=== PATIENT | female | born 1945 | race Two or more races ===

== ENCOUNTER 2023-02-12 10:10 | Emergency (ER) | payer MEDICARE ==
[~2023-02-12] VITALS: Ht 157.5 cm; Wt 54.6 kg
[2023-02-12 10:16] VITALS: BP 148/67
[2023-02-12] MEDS ORDERED: KETOROLAC 30MG VIAL (30MG/ML) IVP ONE (11:00)
[2023-02-12] MEDS ORDERED: DIAZEPAM 5 MG/ML 2 ML SYG IVP ONE (11:00)
[2023-02-12] MEDS ORDERED: FAMOTIDINE 20MG VIAL IV ONE (11:00)
[2023-02-12] MEDS ORDERED: METOCLOPRAMIDE 10 MG/2 ML VIAL IVP ONE (11:00)
[2023-02-12] MEDS ORDERED: METOCLOPRAMIDE 10 MG TABLET PO ONE (11:30)
[2023-02-12] MEDS ORDERED: KETOROLAC 60 MG VIAL (30MG/ML) IM ONE (11:30)
[2023-02-12] MEDS ORDERED: DIAZEPAM 5 MG/ML 2 ML SYG IM ONE (11:30)
[2023-02-12] MEDS ORDERED: FAMOTIDINE 20MG TAB PO ONE (11:30)
[2023-02-12] MEDS ORDERED: CYCL10TA16 PO (12:02)
[2023-02-12] MEDS ORDERED: NAPR-1192 PO (12:02)
== END 2023-02-12 12:10 | disposition home or self-care (01) ==
LOC: EDH 10:10
DX: M54.12 Radiculopathy, cervical region (principal); M25.511 Pain in right shoulder; I10 Essential (primary) hypertension; E11.9 Type 2 diabetes mellitus without complications
CPT/HCPCS: 99284; 72040; 73030; 96372 ×2; J3360; J1885

== ENCOUNTER → 2024-08-02 | Outpatient (CLI) | payer MEDICARE ==
[~2024-08-02] MED LIST: ASPI-1197 PO; ATOR20TA65 PO; DOCU-116 PO; DONE10TA43 PO; FERR-72 PO; MEMA10TA21 PO; METF-444 PO; PARO-37 PO
--- NOTE | 2024-08-02 10:42 | HMCIMG ---
MAMMO SCREENING BILATERAL HISTORY: Screening mammogram. COMPARISON: None TECHNIQUE: Bilateral screening mammogram with CAD was performed with craniocaudal and mediolateral oblique projections. FINDINGS: The breasts are extremely dense which lowers the sensitivity of mammogram. There is no evidence of a dominant mass, or suspicious microcalcification. There is no evidence of nipple retraction or skin thickening. IMPRESSION: 1. Stable mammogram. Patient was entered into a reminder system with a target due date for their next mammogram. BI-RADS: CATEGORY 2: BENIGN FINDINGS Recommend monthly self breast exam as well as annual clinical examination. A negative x-ray should not delay biopsy if a dominant or clinically suspicious mass is present, since 8-10% of cancers are not identified by mammography. Dense breasts particularly, may obscure an underlying neoplasm. Some of these may be detected clinically and therefore, clinical examination is an essential part of breast evaluation.
== END | disposition home or self-care (01) ==
LOC: RAH 09:44
PROVIDERS: ATTEND Family Medicine
DX: Z12.31 Encounter for screening mammogram for malignant neoplasm of breast (principal); R92.343 Mammographic extreme density, bilateral breasts
CPT/HCPCS: 77067

== ENCOUNTER 2024-11-03 01:35 | Observation (INO) | payer MEDICARE ==
[2024-11-03] VITALS (20 sets, daily range): BP systolic 107–147; BP diastolic 33–72; PULSE 62–88; RESP 14–19; TEMP 97.6–98.3; O2SAT 100
[~2024-11-03] VITALS: Ht 160 cm; Wt 58.3 kg
--- NOTE | 2024-11-03 01:41 | ERN ---
ED Note History of Present Illness Stated Complaint: LOWER GI BLEED Chief Complaint: Gi Problem Time Seen by MD: 01:38 Dictation: Ms Vaughan is a 79-year-old female with history of Alzheimer's dementia, hyperlipidemia, recurrent UTI, anemia, type 2 diabetes, and myasthenia gravis/post thymectomy who was transported via EMS to the emergency department this morning for evaluation of gastrointestinal bleeding. According to patient's she was undergoing a bowel prep for colonoscopy later today when she had syncopal episode /who passed out on toilet. He reports she has been having bright red stools since Thursday at 1500. She feels weak, fatigued and is experiencing abdominal cramping as well as leg cramps.. It was two rece ived colonoscopy because she had been experiencing bloody stools occurring approximately every other day. There was no reported fever, chills, chest pain, palpitations, edema, nausea, vomiting, hematemesis, melena, headache, or dizziness. She does take aspirin but no anticoagulants. 98.1, heart rate of 59, 16 respiratory rate, blood pressure 148 over 70 with a pulse oximetry of 98% on room air 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 NP 07/31/24 Ferrous Sulfate (Ferrous Sulfate) 325 Mg (65 Mg Iron) Tablet, 1 TAB PO BID for 30 Days, #60 TAB 0 Refills Prov:ALAN WHITLEY NP 07/31/24 Reported Medications Atorvastatin Calcium (Atorvastatin Calcium) 20 Mg Tablet, 1 TAB PO HS for 30 Days, #30 TAB 0 Refills 07/29/24 Aspirin (Aspirin) 81 Mg Tab.chew, 1 TAB PO DAILY for 30 Days, #30 TAB 0 Refills 07/29/24 Paroxetine HCl (Paroxetine HCl) 20 Mg Tablet, 20 MG PO HS, TAB 07/29/24 Metformin HCl (Metformin HCl) 500 Mg Tablet, 1 TAB PO DAILY for 30 Days, #60 TAB 0 Refills 07/29/24 Donepezil HCl (Donepezil HCl) 10 Mg Tablet, 10 MG PO HS, TAB 07/29/24 Memantine HCl (Memantine HCl) 10 Mg Tablet, 10 MG PO BID, TAB 07/29/24 Past Medical History Past Medical History: Dementia, Diabetes-Type II, High Cholesterol, UTI Surgical History: Other, BTL Surgical History Other: THYMECTOMY Social History: Negative, Lives with family History: Not Applicable RN Note Reviewed/Agreed w/PFSH: Yes Review of System Dictation REVIEW OF SYSTEMS: CONSTITUTIONAL: Patient denies fevers, chills, sweats and weight changes. Reported fatigue and general weakness. EYES: Patient denies any visual symptoms. EARS, NOSE, AND THROAT: No difficulties with hearing. No symptoms of rhinitis or sore throat. CARDIOVASCULAR: Patient denies chest pains, palpitations, orthopnea and paroxysmal nocturnal dyspnea. RESPIRATORY: No dyspnea on exertion, no wheezing or cough. GI: No nausea, vomiting, diarrhea, constipation, or melena. Reported abdominal cramping as well as bright red rectal bleeding throughout bowel prep for colonoscopy. She had been experiencing rectal bleeding (reason for colonoscopy) occurring approximately every other day : No urinary hesitancy or dribbling. No nocturia or urinary frequency. No abnormal urethral discharge. Reported urinary incontinence. MUSCULOSKELETAL: No myalgias or arthralgias. NEUROLOGIC: No chronic headaches, no seizures. Patient denies numbness, tingling or weakness. Reported altered mental status; worsening. Patient has a history of Alzheimer's dementia. PSYCHIATRIC: Patient denies problems with mood disturbance. No problems with anxiety. ENDOCRINE: No excessive urination or excessive thirst. DERMATOLOGIC: Patient denies any rashes or skin changes. Initial Vital Sign VS Vital Signs Date Time Temp Pulse Resp B/P (MAP) Pulse Ox O2 Delivery O2 Flow Rate FiO2 11/03/24 01:41 98.1 59 16 148/70 98 Room Air 0 11/03/24 04:06 21 Physical Exam Dictation Vital signs: Reviewed. Afebrile Constitutional: No acute distress. Fatigue/week Head/Face: Normocephalic, atraumatic. Eyes: Periorbital areas with no swelling, redness, or edema. Lids and lashes are normal. Conjunctival injection is absent. Sclera anicteric. Pupils equal, round, reactive to light. ENT: Pinnas intact and no signs of trauma or erythema. Ear canals clear and no discharge. TMs no erythema. No nasal discharge or bleeding noted. Oropharynx with no exudate, redness, swelling, masses, exudates, or evidence of obstruction. Uvula midline. Mucous membranes dry Neck: Trachea midline, no masses palpated, and no cervical lymphadenopathy. No swelling. Supple, full range of motion. Chest/Axilla: No tenderness, no crepitus, no paradoxical movement, no retractions. Cardiovascular: Regular rate, regular rhythm, no murmur, no gallops. Symmetric pulses. No peripheral edema. Normotensive. shelter monitor reflecting sinus rhythm Respiratory: Respirations even and unlabored. Lung sounds clear; no wheezes, rales or rhonchi. Room air SpO2 99% Gastrointestinal: Inspection is normal. No distention is appreciated. Bowel sounds are normal. No mass or organomegaly . Noted tenderness/cramping No rebound. No rigidity. No voluntary or involuntary guarding. No Resendiz's sign. Neurological: Normal speech, gross motor function intact, gross sensory function intact. No focal weakness/Paresthesia. Musculoskeletal/Extremities: All extremities have full range of motion, no pain or tenderness on palpation. Symmetric pulses. Integumentary: Intact. Skin is normal color, warm and dry. Cap refill less than 3 seconds. Results (Laboratory/Radiology) Laboratory/Radiology Laboratory Tests Test 11/03/24 01:58 White Blood Count 8.8 K/uL (4.8-10.8) Red Blood Count 3.48 MIL/uL (4.00-5.50) L Hemoglobin 11.0 g/dL (12.0-16.0) L Hematocrit 34.1 % (36-48) L Mean Corpuscular Volume 98.0 fL (79-99) Mean Corpuscular Hemoglobin 31.6 pg (27.0-33.0) Mean Corpuscular Hemoglobin Concent 32.3 g/dL (32.0-36.0) Red Cell Distribution Width 13.9 % (11.0-15.5) Platelet Count 183 K/uL (130-400) Mean Platelet Volume 12.0 fL (7.5-10.5) H Immature Granulocyte % (Auto) 0.1 % (0-1) Neutrophils (%) (Auto) 60.9 % (40.0-77.0) Lymphocytes (%) (Auto) 28.6 % (21.0-51.0) Monocytes (%) (Auto) 8.9 % (3.0-13.0) Eosinophils (%) (Auto) 1.3 % (0.0-8.0) Basophils (%) (Auto) 0.2 % (0.0-5.0) Neutrophils # (Auto) 5.3 K/uL (1.8-7.7) Lymphocytes # (Auto) 2.5 K/uL (1.0-4.8) Monocytes # (Auto) 0.8 K/uL (0.1-1.0) Eosinophils # (Auto) 0.11 K/uL (0.00-0.70) Basophils # (Auto) 0.02 K/uL (0.00-0.20) Absolute Immature Granulocyte (auto 0.01 K/uL (0-1) Nucleated Red Blood Cells 0.0 % (0.0-0.19) Prothrombin Time 11.0 SEC (9.6-11.6) Prothromb Time International Ratio 1.04 (0.85-1.15) Activated Partial Thromboplast Time 23.1 SEC (26.3-35.5) L Sodium Level 132 mmol/L (136-145) L Potassium Level 3.2 mmol/L (3.5-5.1) L Chloride Level 95 mmol/L (101-111) L Carbon Dioxide Level 30 mmol/L (21-32) Blood Urea Nitrogen 10 mg/dL (7-18) Creatinine 0.9 mg/dL (0.5-1.0) Glomerular Filtration Rate Calc 66 mL/min (>90) Random Glucose 117 mg/dL (70-105) H Total Calcium 9.2 mg/dL (8.5-10.1) Troponin I High Sensitivity 5 ng/L (4-50) Labs Reviewed?: Yes ED Course ED Course Orders Procedure Category Date Status Time Cbc With Differential LAB 11/03/24 Complete 01:38 Basic Metabolic Panel LAB 11/03/24 Complete 01:38 Type And Screen BBK 11/03/24 Complete 01:38 Pt And Ptt LAB 11/03/24 Complete 01:38 12 Lead Ekg Tracing- EKG 11/03/24 Logged Technical 01:47 Chest 1vw RAD 11/03/24 Taken 01:47 Troponin I High LAB 11/03/24 Complete Sensitivity 02:59 Potassium Chloride PHA 11/03/24 In Process 20meq/100ml ([place] 03:30 Morphine 2mg Syg PHA 11/03/24 Complete (Morphine 2mg Syg) 03:30 Edm Admit Bridge Order ADM 11/03/24 Transmitted 04:09 Current Medications Medications (Trade) Dose Ordered Sig/Naima Route PRN Reason Start Time Stop Time Status Last Admin Dose Admin Morphine Sulfate (morPHINE 2MG SYG) 2 mg ONCE ONCE IVP 11/03/24 03:30 11/03/24 03:32 DC 11/03/24 03:12 Potassium Chloride 100 ml @ 50 mls/hr ONCE ONCE IV 11/03/24 03:30 11/03/24 05:29 11/03/24 03:12 Vital Signs Date Time Temp Pulse Resp B/P (MAP) Pulse Ox O2 Delivery O2 Flow Rate FiO2 11/03/24 04:06 98.2 64 17 134/49 100 Room Air* 0 21 11/03/24 01:41 98.1 59 16 148/70 98 Room Air 0 4:11 a.m. patient was accepted by Jensen Toledo, mid-level provider for hospitalist group for admission and further management Medical Decision Making MDM MDM: Differential diagnosis: Presyncope-vasovagal, dehydration, GI bleed related, medications, primary cardiac Rationale: Tests considered and ordered secondary to shared decision making include: labs, ECG and radiology Previous outside records reviewed: Old ER visits. Risk of complication and/or morbidity or mortality of patient management: None Medications-Per medication reconciliation Need for hospitalization: Patient does meet criteria for hospitalization. Need for emergency major/minor surgery: No There are no social concerns with this patient. Prescription drug management Prescriptions will include symptomatic care Patient's prior external medical records from other ER visits were reviewed by me as indicated. Prior testing and results from previous visits were reviewed. Prior tests were taken into account with medical decision making and resource utilization, independent historian/historians were used to obtain complete medical history. I independently interpreted the test that were performed, results were reviewed by me and considered findings on radiology if ordered. Medical management and examination interpretation discussions were had by me with other qualified healthcare professionals as indicated for the patient's care. Problem List Problem List: (1) Syncope (2) Hypotension (3) Leg pain (4) Dehydration DX & DISP Disposition: Inpatient Decision to Admit Time: 03:00 Departure Impression: Primary Impression: Syncope Additional Impressions: Leg pain, Hypotension, Dehydration, GI bleed Condition: Stable Additional Instructions: Patient was informed of all the diagnostic labs and procedures conducted in the emergency room today and demonstrated understanding of the results. I personally reviewed and interpreted all the diagnostic exams performed in the ER today. The patient will be admitted to the hospital for further treatment and evaluation. Disposition-admit to facility Condition-stable/guarded Course-uncertain at this time Pain status-decreased Assessment-exam unchanged Admission Certification- I certify that the patients status is appropriate and is based on my best clinical judgment and the patient's condition as documented in the medical records Referrals: ALLI GUADALUPE MD (PCP) ROMAN MOLINA NP Nov 03, 2024 01:41 THIAGO RODRIGUEZ MD Nov 03, 2024 04:13
[2024-11-03 02:17] LABS: BASOPHILS # (AUTO) 0.02 K/uL (0.00-0.20); BASOPHILS % (AUTO) 0.2 % (0.0-5.0); EOSINOPHILS # (AUTO) 0.11 K/uL (0.00-0.70); EOSINOPHILS % (AUTO) 1.3 % (0.0-8.0); HEMATOCRIT 34.1 % (36-48); IMMATURE GRANULOCYTE ABSOLUTE 0.01 K/uL (0-1); LYMPHOCYTES # (AUTO) 2.5 K/uL (1.0-4.8); LYMPHOCYTES % (AUTO) 28.6 % (21.0-51.0); MEAN CORPUSCULAR HEMOGLOBIN 31.6 pg (27.0-33.0); MEAN CORPUSCULAR HGB CONC 32.3 g/dL (32.0-36.0); MONOCYTES # (AUTO) 0.8 K/uL (0.1-1.0); MONOCYTES % (AUTO) 8.9 % (3.0-13.0); NEUTROPHILS # (AUTO) 5.3 K/uL (1.8-7.7); NEUTROPHILS % (AUTO) 60.9 % (40.0-77.0); PLATELET COUNT (AUTO) 183 K/uL (130-400); RED BLOOD CELL COUNT(AUTO) 3.48 MIL/uL (4.00-5.50); RED CELL DISTRIBUTION WIDTH 13.9 % (11.0-15.5); WHITE BLOOD COUNT (AUTO) 8.8 K/uL (4.8-10.8)
[2024-11-03 02:23] LABS: CREATININE 0.9 mg/dL (0.5-1.0); POTASSIUM 3.2 mmol/L (3.5-5.1)
[2024-11-03 02:24] LABS: INR 1.04 (0.85-1.15)
[2024-11-03 02:26] LABS: PARTIAL THROMBOPLASTIN TIME 23.1 SEC (26.3-35.5)
[2024-11-03] MEDS: PoTASSium chloRIDE 20MEQ/100ML 100 ML IV ONE (03:12)
[2024-11-03] MEDS: morPHINE 2 MG SYG IVP ONE (03:12)
--- NOTE | 2024-11-03 05:45 | NUR ---
PATIENT DID NOT BRING HOME MEDICATIONS
[2024-11-03] MEDS ORDERED: acetaMINOPHEN 325 MG TAB PO PRN (06:30)
[2024-11-03] MEDS ORDERED: ondanSETRON 4MG INJ IV PRN (06:30)
[2024-11-03] MEDS ORDERED: morPHINE 4 MG SYG IVP PRN (06:30)
[2024-11-03] MEDS ORDERED: hydrALAZine 20MG/ML VIAL IV PRN (06:30)
--- NOTE | 2024-11-03 06:30 | EKG ---
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
--- NOTE | 2024-11-03 06:32 | HP ---
History of Present Illness Reason for Visit: dizziness History of Present Illness Ms. Vaughan is a 79-year-old female that was seen and examined today on 11/03/2024. Patient is a moderate historian and personal health. Patient's is at bedside. Patient came to the emergency department with a chief complaint of dizziness. Onset was tonight. Location is to head. Duration is on and off. Patient reports one episode. Episode was preceded by multiple bowel movements after taking colonoscopy preparation for a colonoscopy that was scheduled outpatient today at 6:00 a.m for an outpatient diagnosis of hematochezia.. Symptoms are alleviated with rest. Patient reported associated abdominal cramping also aggravated by colonoscopy preparation medications. Today in the emergency department potassium was 3.2. Emergency room physician recommended that patient be admitted with a diagnosis of dizziness because she had a similar episode in July of 2024. Past Medical History PAST MEDICAL HISTORY: Alzheimer's dementia, hypertension, hyperlipidemia, type 2 diabetes mellitus, remote history of myasthenia gravis status post thymectomy PAST SURGICAL HISTORY: History of thymectomy PAST SOCIAL HISTORY: Resides with at home, independent with ADLs but needs assistance with IADLs since the diagnosis to dementia, denies active smoking or alcohol consumption Review of Systems General: No Fever, No Chills, No Night Sweats, No Fatigue, No Malaise, No Appetite, No Other HEENT: No Head Aches, No Visual Changes, No Eye Pain, No Ear Pain, No Dysphasia, No Sinus Congestion, No Post Nasal Drip, No Sore Throat, No Other Pulmonary: No Dyspnea, No Cough, No Pleuritic Chest Pain, No Other Cardiovascular: Lt Headedness; No: Chest Pain, Palpitations, Orthopnea, Paroxysmal Noc. Dyspnea, Edema, Other Gastrointestinal: Other (Abdominal cramping); No: Nausea, Vomiting, Abdominal Pain, Diarrhea, Constipation, Melena, Hematochezia Genitourinary: No Dysuria, No Frequency, No Incontinence, No Hematuria, No Retention, No Other Musculoskeletal: No: other, neck pain, shoulder pain, arm pain, back pain, hand pain, leg pain, foot pain Skin: No Urticaria, No Rash, No Other Neurological: No: Weakness, Numbness, Incoordination, Change in speech, Confusion, Seizures, Other Allergies: Coded Allergies: No Known Allergies (Unverified Allergy, Unknown, 02/12/23) Scheduled Aspirin (Aspirin), 1 TAB PO DAILY, (Reported) Atorvastatin Calcium (Atorvastatin Calcium), 1 TAB PO HS, (Reported) Docusate Sodium (Colace), 1 CAP PO BID Donepezil HCl (Donepezil HCl), 10 MG PO HS, (Reported) Ferrous Sulfate (Ferrous Sulfate), 1 TAB PO BID Memantine HCl (Memantine HCl), 10 MG PO BID, (Reported) Metformin HCl (Metformin HCl), 1 TAB PO DAILY, (Reported) Paroxetine HCl (Paroxetine HCl), 20 MG PO HS, (Reported) Exam Vital Signs Vital Signs Date Time Temp Pulse Resp B/P (MAP) Pulse Ox O2 Delivery O2 Flow Rate FiO2 11/03/24 05:47 98.4 63 17 129/50 100 Room Air* 0 21 General Appearance: Alert, Cooperative HEENT: Atraumatic, EOMI Respiratory: Clear to auscultation, Normal air movement, NL respiratory effort Cardiovascular: Regular rate, Regular rhythm, Normal S1, Normal S2 Abdominal: Normal bowel sounds, Soft, No tenderness Extremities: No edema Skin: No significant lesion Neuro: Normal gait, Normal speech, Strength at 5/5 X4 ext, Sensation intact, Cr anial nerves 3-12 NL Psych/Mental Status: Mental status NL, Mood NL, Thoughts/Content NL Assessment/Plan ASSESSMENT: [ Hematochezia, POA Dizziness, POA, 2/2 vasovagal episode from colonoscopy prep Hypokalemia, POA Alzheimer's dementia Hypertension Hyperlipidemia Diabetes mellitius type2 Myasthenia gravis Alzheimer's dementia, hypertension, hyperlipidemia, type 2 diabetes mellitus, remote history of myasthenia gravis status post thymectomy PLAN: [ Admit patient to medical floor. Consult Gastroenterology Service for recommendations on how to proceed with scheduled colonoscopy that was supposed to be done outpatient today at 6:00 a.m.. Keep patient NPO. Advance diet if no indicated procedures after gastroenterology evaluation. IV fluid maintenance therapy lactated Ringer's at 75 mL/HR. Patient received potassium chloride 10 mEq IV times 1. Monitor patient's labs. Replace potassium as needed. Consider early discharge if patient able to get her colonoscopy in no worsening symptoms. Reviewed patient's medical records from July 2024 where she was worked up for syncope Fall precautions Consider resuming home medications once patient is no longer NPO and medications has been reconciled Check glucometer a.c. and HS Humulin R sliding scale If patient has converted to inpatient status check hemoglobin A1c Advance diet to 1800 ADA once patient is no longer NPO GI prophylaxis, famotidine DVT prophylaxis, Ramsey's and SCDs] ADVANCED CARE PLANNING 1. Which of the following were discussed? Hospice Care - Yes Therapeutic options - Yes Advance Directives - Yes -patient states that she does not have any advance directives in place at this time, however has been can make decisions for her if she becomes unable. Other discussions - patient wishes to remain a full code at this time 2. Discussed with who? Patient 3. Voluntary nature of this service was explained to the patient? Yes 4. Amount of time spent - __ 16 minutes 5. Reviewed by Physician? (if this service was performed by NPP) Yes MARIYA LISA ENGINEERING CLERK Nov 03, 2024 06:31
[2024-11-03] MEDS ORDERED: PoTASSium chloRIDE 20MEQ/100ML 100 ML IV PRN (07:00)
[2024-11-03] MEDS: LACTATED RINGERS 1000ML 1,000 ML IV SCH (07:04)
[2024-11-03] MEDS: INSULIN humuLIN R 100 UNIT/ML 3ML SQ SCH (07:30)
[2024-11-03] MEDS ORDERED: CYCLOBENZAPRINE HCL 10 MG TABLET PO ONE (08:30)
[2024-11-03] MEDS: FAMOTIDINE 20MG VIAL IV SCH (08:40)
[2024-11-03] MEDS ORDERED: MAGNESIUM 2GM PREMIX 50ML 50 ML IV PRN (09:00)
--- NOTE | 2024-11-03 10:30 | PN ---
[facility] PROGRESS NOTE Date of Service: Nov 03, 2024 Time of Service: 10:18 SUBJECTIVE: Ms. Vaughan is a 79-year-old female that was seen and examined today on 11/03/2024. Patient is a moderate historian and personal health. Patient's is at bedside. Patient came to the emergency department with a chief complaint of dizziness. Onset was tonight. Location is to head. Duration is on and off. Patient reports one episode. Episode was preceded by multiple bowel movements after taking colonoscopy preparation for a colonoscopy that was scheduled outpatient today at 6:00 a.m for an outpatient diagnosis of hematochezia.. Symptoms are alleviated with rest. Patient reported associated abdominal cramping also aggravated by colonoscopy preparation medications. Today in the emergency department potassium was 3.2. Emergency room physician recommended that patient be admitted with a diagnosis of dizziness because she had a similar episode in July of 2024. 11/03/2024 - patient is currently asymptomatic and says that her lower extremity cramps has been improved, patient pending on colonoscopy this a.m.. Patient is currently hemodynamically stable and labs reveal mild hyponatremia, hypochloremia, hypokalemia. Reason for the dizziness probably is the dehydration due to multiple bowel movements yesterday due to bowel prep for colonoscopy. Orthostatic vitals to be taken. Patient will be monitored closely REVIEW OF SYSTEMS CONSTITUTIONAL: Denies fevers, chills, or night sweats. No unintentional weight loss reported. NEUROLOGICAL: Denies headache, amaurosis fugax, motor weakness, sensory deficit, vertigo/spinning sensation, gait abnormalities, or tremors. ENT: No hearing loss, otalgia, otorrhea, rhinitis, rhinorrhea, hoarseness, or sore throat. CARDIOVASCULAR: Denies any exertional angina, dyspnea on exertion, orthopnea, paroxysmal nocturnal dyspnea, palpitations, life-threatening arrhythmias, claudication. PULMONARY: Denies any shortness of breath, cough, phlegm/sputum, hemoptysis, pleuritic chest pain. SLEEP: Denies morning headaches, daytime somnolence or napping. Denies diffic ulty falling asleep, staying asleep, waking from sleep. Denies knowledge of snoring. GASTROINTESTINAL: Denies any type of dysphagia to either liquids or solids. Denies nausea, vomiting, pyrosis, early satiety, abdominal pain, diarrhea, constipation, or changes in stool consistency or caliber. Denies coffee-ground emesis, hematemesis, hematochezia, or melanotic stools. GENITOURINARY: Denies frequency, urgency, nocturia, hematuria or incontinence (Storage/Irritative symptoms.) Low urinary stream, straining to void, urinary intermittency or hesitancy, splitting of the voiding stream, terminal dribbling. ENDOCRINOLOGIC: Denies polyuria, polydipsia, polyphagia or heat/cold into lerances. HEMATOLOGIC: Denies thrombophilia/previous clots, or coagulopathy/bleeding disorders. ONCOLOGIC: Denies personal history of malignancy. DERMATOLOGIC: Denies rashes or pruritus. PSYCHIATRIC: Denies any suicidal or homicidal ideation. Denies hallucinations. PHYSICAL EXAM GENERAL APPEARANCE: The patient is awake, alert, and oriented, in no acute cardiopulmonary distress. NEUROLOGICAL: Cranial nerves II-XII grossly intact. Motor is 5/5 in bilateral upper and lower extremities proximal to distal. No sensory deficits. HEENT: Face is symmetric. Pupils are equal and reactive. Extraocular movements are intact. NECK: Supple. No JVD. No thyromegaly. No submental, submandibular, pre- /postauricular, occipital or supraclavicular lymphadenopathy. CHEST: Normal chest expansion. No Telemetry. LUNGS: Absence of any rales, rhonchi or any wheezing. CARDIOVASCULAR: Regular. S1 and S2 normal. No appreciable rubs, murmurs or gallops. ABDOMEN: Soft, nontender, and nondistended. There is no rebound, voluntary guarding, or rigidity. : Deferred. No Reyes. EXTREMITIES: Non-edematous and not cyanotic. No clubbing. Good capillary refill. SKIN: No skin breakdown. Vital Signs (last 8hr) Date Time Temp Pulse Resp B/P (MAP) Pulse Ox O2 Delivery O2 Flow Rate FiO2 11/03/24 08:47 97.9 63 18 124/54 100 Room Air 11/03/24 06:25 98.2 63 17 147/51 99 Room Air 11/03/24 05:47 98.4 63 17 129/50 100 Room Air* 0 21 11/03/24 05:03 98.4 69 17 136/49 100 Room Air* 0 21 11/03/24 04:06 98.2 64 17 134/49 100 Room Air* 0 21 LABS: Laboratory: Test 11/03/24 07:08 11/03/24 01:58 Range/Units Potassium Level 4.0 3.5-5.1 mmol/L Phosphorus Level 4.0 2.5-4.9 mg/dL Magnesium Level 2.00 1.80-2.40 mg/dL Total Creatine Kinase 155 # 21-232 U/L White Blood Count 8.8 4.8-10.8 K/uL Red Blood Count 3.48 L 4.00-5.50 MIL/uL Hemoglobin 11.0 L 12.0-16.0 g/dL Hematocrit 34.1 L 36-48 % Mean Corpuscular Volume 98.0 79-99 fL Mean Corpuscular Hemoglobin 31.6 27.0-33.0 pg Mean Corpuscular Hemoglobin Concent 32.3 32.0-36.0 g/dL Red Cell Distribution Width 13.9 11.0-15.5 % Platelet Count 183 130-400 K/uL Mean Platelet Volume 12.0 H 7.5-10.5 fL Immature Granulocyte % (Auto) 0.1 0-1 % Neutrophils (%) (Auto) 60.9 40.0-77.0 % Lymphocytes (%) (Auto) 28.6 21.0-51.0 % Monocytes (%) (Auto) 8.9 3.0-13.0 % Eosinophils (%) (Auto) 1.3 0.0-8.0 % Basophils (%) (Auto) 0.2 0.0-5.0 % Neutrophils # (Auto) 5.3 1.8-7.7 K/uL Lymphocytes # (Auto) 2.5 1.0-4.8 K/uL Monocytes # (Auto) 0.8 0.1-1.0 K/uL Eosinophils # (Auto) 0.11 0.00-0.70 K/uL Basophils # (Auto) 0.02 0.00-0.20 K/uL Absolute Immature Granulocyte (auto 0.01 0-1 K/uL Nucleated Red Blood Cells 0.0 0.0-0.19 % Prothrombin Time 11.0 9.6-11.6 SEC Prothromb Time International Ratio 1.04 0.85-1.15 Activated Partial Thromboplast Time 23.1 L 26.3-35.5 SEC Sodium Level 132 L 136-145 mmol/L Chloride Level 95 L 101-111 mmol/L Carbon Dioxide Level 30 21-32 mmol/L Blood Urea Nitrogen 10 7-18 mg/dL Creatinine 0.9 0.5-1.0 mg/dL Glomerular Filtration Rate Calc 66 >90 mL/min Random Glucose 117 H 70-105 mg/dL Total Calcium 9.2 8.5-10.1 mg/dL Troponin I High Sensitivity 5 4-50 ng/L Current Medications Medications (Trade) Dose Ordered Sig/Naima Route PRN Reason Start Time Stop Time Status Last Admin Dose Admin Acetaminophen (TYLenol 325MG TAB) 650 mg Q6H PRN PO TEMPERATURE GREATER THAN 101.5 11/03/24 06:30 12/03/24 06:29 Famotidine (Pepcid 20mg Vial) 20 mg DAILY IV 11/03/24 09:00 12/03/24 08:59 11/03/24 08:40 20 MG Hydralazine HCl (APRESOLine 20MG INJ) 10 mg Q6H PRN IV For:SBP above 160;DBP above 90 11/03/24 06:30 12/03/24 06:29 Insulin Human Regular (humuLIN R 100 UNIT/ML 3ML) INSULIN SLIDING SCAL... ACHS SQ 11/03/24 07:30 12/03/24 07:29 Lactated Ringer's 1,000 ml @ 75 mls/hr [id number] IV 11/03/24 06:30 12/03/24 06:29 11/03/24 07:04 75 MLS/HR Magnesium Sulfate 50 ml @ 0 mls/hr PROTOCOL PRN IV MAGNESIUM PROTOCOL 11/03/24 09:00 12/03/24 08:59 Morphine Sulfate (morPHINE 4MG SYG) 2 mg Q4H PRN IVP SEVERE PAIN (7-10) 11/03/24 06:30 11/10/24 06:29 Ondansetron HCl (zoFRAN 4MG INJ) 4 mg Q6H PRN IV NAUSEA/VOMITING 11/03/24 06:30 12/03/24 06:29 Potassium Chloride 100 ml @ 50 mls/hr AD PRN IV POTASSIUM PROTOCOL 11/03/24 07:00 12/03/24 06:59 DIAGNOSTICS / RADIOLOGY: [ ] ASSESSMENT: Hematochezia, POA Dizziness, POA, 2/2 vasovagal episode from colonoscopy prep Hypokalemia, POA Hyponatremia POA Alzheimer's dementia POA Hypertension POA Hyperlipidemia POA Diabetes mellitius type2 POA Myasthenia gravis POA Blood loss Anemia POA Hemorrhoids POA PLAN: Hematochezia, hemorrhoids, blood loss anemia Gastroenterology has been consulted Colonoscopy scheduled this a.m. Monitor hemoglobin Patient NPO Slowly advance diet after the colonoscopy is done Dizziness, electrolyte abnormalities Patient will be resuscitated with IV fluids LR at 75 mL/hour Potassium will be repleted Monitor electrolytes in the a.m. DVT prophylaxis with SCDs GI prophylaxis with famotidine Pending Medication reconciliation ATTESTATION BY PHYSICIAN I have seen and examined the patient. I reviewed the documentation, medical decision making, and treatment plan as noted by the resident provider above. I agree with the findings and plan of care. Praneeth Henriquez MD, KEERTI K MD Nov 03, 2024 10:30
--- NOTE | 2024-11-03 10:35 | HMCIMG ---
Exam Type: CHEST 1VW Clinical Information: SYNCOPE Comparison: None Findings: There is normal hear tsize and there is status post median sternotomy. The lungs are clear of infiltrates. Impression: Clear lungs.
[2024-11-03] MEDS ORDERED: proPOFol 10 MG/ML 20ML VIAL IV ONE (13:10)
[2024-11-03] MEDS ORDERED: ePHEDrine SULFate 50 MG/ML AMPULE ONE (13:22)
[2024-11-03] MEDS ORDERED: METH1TAB PO (15:35)
[2024-11-03] MEDS ORDERED: ERGO500093 PO (15:35)
[2024-11-03] MEDS ORDERED: AMLO-257 PO (15:35)
[2024-11-03] MEDS ORDERED: PIOG15TA66 PO (15:35)
[2024-11-03] MEDS ORDERED: LACT-441 PO (15:35)
[2024-11-03] MEDS: hydroCORTISONE 2.5% CREAM 28G TP SCH (16:24)
[2024-11-03] MEDS: hydroCORTISONE 25 MG SUPPOSITORY PR SCH (16:24)
[2024-11-03] MEDS: LACTULOSE 20 GM/30 ML UDCUP PO SCH (20:30)
[2024-11-03] MEDS: atorVAStatin 20 MG TABLET PO SCH (20:30)
[2024-11-03] MEDS: doCUSate SODIUM 100 MG CAP PO SCH (20:31)
[2024-11-03] MEDS: doNEPEZil HCL 5 MG TAB PO SCH (20:39)
[2024-11-03] MEDS: MEMANtine HCL 5 MG TABLET PO SCH (20:40)
[2024-11-03] MEDS: PARoxetine HCL 20 MG TABLET PO SCH (20:40)
[2024-11-03] MEDS ORDERED: NON-FORMULARY MEDICATION 1 EACH (Memantine HCl 10 MG) PO SCH (21:00)
[2024-11-03] MEDS ORDERED: LACTULOSE PO SCH (21:00)
[2024-11-03] MEDS ORDERED: NON-FORMULARY MEDICATION 1 EACH (Donepezil HCl 10 MG) PO SCH (21:00)
[2024-11-04] VITALS: BP 114/51; PULSE 76; RESP 17; TEMP 98.2
[2024-11-04 04:00] VITALS: BP 132/56; PULSE 77; RESP 17; TEMP 98.3
[2024-11-04 06:21] LABS: BASOPHILS # (AUTO) 0.01 K/uL (0.00-0.20); BASOPHILS % (AUTO) 0.2 % (0.0-5.0); EOSINOPHILS # (AUTO) 0.02 K/uL (0.00-0.70); EOSINOPHILS % (AUTO) 0.4 % (0.0-8.0); HEMATOCRIT 29.8 % (36-48); IMMATURE GRANULOCYTE ABSOLUTE 0.01 K/uL (0-1); LYMPHOCYTES % (AUTO) 20.2 % (21.0-51.0); MEAN CORPUSCULAR HEMOGLOBIN 31.1 pg (27.0-33.0); MEAN CORPUSCULAR HGB CONC 32.9 g/dL (32.0-36.0); MEAN CORPUSCULAR VOLUME 94.6 fL (79-99); MONOCYTES # (AUTO) 0.4 K/uL (0.1-1.0); MONOCYTES % (AUTO) 7.1 % (3.0-13.0); NEUTROPHILS # (AUTO) 3.6 K/uL (1.8-7.7); NEUTROPHILS % (AUTO) 71.9 % (40.0-77.0); PLATELET COUNT (AUTO) 171 K/uL (130-400); RED BLOOD CELL COUNT(AUTO) 3.15 MIL/uL (4.00-5.50); RED CELL DISTRIBUTION WIDTH 13.6 % (11.0-15.5)
[2024-11-04 06:49] LABS: ALBUMIN 3.1 g/dL (3.5-5.0); BILIRUBIN,TOTAL 0.3 mg/dL (0.2-1.0); CREATININE 0.7 mg/dL (0.5-1.0); POTASSIUM 4.2 mmol/L (3.5-5.1); TOTAL PROTEIN, SERUM 6.5 g/dL (6.0-8.3)
[2024-11-04 08:00] VITALS: BP 133/78; PULSE 62; RESP 16; TEMP 98.5; O2SAT 97
[2024-11-04] MEDS: METHENAMINE MANDELATE PO SCH (09:00)
[2024-11-04] MEDS ORDERED: ASPIRIN 81MG CHEW TAB PO SCH (09:00)
--- NOTE | 2024-11-04 09:31 | DS ---
Discharge Summary Hospital Course Summary: Ms. Vaughan is a 79-year-old female that was seen and examined today on 11/03/2024. Patient is a moderate historian and personal health. Patient's is at bedside. Patient came to the emergency department with a chief complaint of dizziness. Onset was tonight. Location is to head. Duration is on and off. Patient reports one episode. Episode was preceded by multiple bowel movements after taking colonoscopy preparation for a colonoscopy that was scheduled outpatient today at 6:00 a.m for an outpatient diagnosis of hematochezia.. Symptoms are al leviated with rest. Patient reported associated abdominal cramping also aggravated by colonoscopy preparation medications. Today in the emergency department potassium was 3.2. Emergency room physician recommended that patient be admitted with a diagnosis of dizziness because she had a similar episode in July of 2024. 11/03/2024 - patient is currently asymptomatic and says that her lower extremity cramps has been improved, patient pending on colonoscopy this a.m.. Patient is currently hemodynamically stable and labs reveal mild hyponatremia, hypochloremia, hypokalemia. Reason for the dizziness probably is the dehydration due to multiple bowel movements yesterday due to bowel prep for colonoscopy. Orthostatic vitals to be taken. Patient will be monitored closely 11/04/2024 - patient is currently asymptomatic and hemodynamically stable, all her labs and electrolytes improved. Discussed with the family that there is potential component of parkinsons disease. Advised him to take [id number] hydrocortisone topical for the hemorrhoids and continue Colace to have soft stools. Also recommended to hold aspirin as it may increase the risk of bleeding of hemorrhoids. Bunch Maker(s): Gastroenterology Procedure(s): PATIENT: VICKI VAUGHAN MR#: [id number] : 1945 SEX: F AGE: 79 LOCATION: [facility] ORDER 8 STATUS: ADM IN REPORT#: [id number] SERVICE 6 REASON: SYNCOPE ORDERING PHYSICIAN: THIAGO RODRIGUEZ MD PROCEDURE: CXR1VW - CHEST 1VW Exam Type: CHEST 1VW Clinical Information: SYNCOPE Comparison: None Findings: There is normal hear tsize and there is status post median sternotomy. The lungs are clear of infiltrates. Impression: Clear lungs. DICTATED BY: DORIAN RAMIREZ MD DATE: 11/03/241032 ELECTRONICALLY SIGNED BY: DORIAN RAMIREZ MD DATE: 11/03/241034 Assessment/Plan: ASSESSMENT: Hematochezia, POA Dizziness, POA, 2/2 vasovagal episode from colonoscopy prep Hypokalemia, POA Hyponatremia POA Alzheimer's dementia POA Hypertension POA Hyperlipidemia POA Diabetes mellitius type2 POA Myasthenia gravis POA Blood loss Anemia POA Hemorrhoids POA PLAN: Hematochezia, hemorrhoids, blood loss anemia Gastroenterology has been consulted Colonoscopy scheduled this a.m. Monitor hemoglobin Patient NPO Slowly advance diet after the colonoscopy is done Dizziness, electrolyte abnormalities Patient will be resuscitated with IV fluids LR at 75 mL/hour Potassium will be repleted Monitor electrolytes in the a.m. DVT prophylaxis with SCDs GI prophylaxis with famotidine Pending Medication reconciliation Discharge Instructions: Stool softeners taken [id number] stool softener such as docusate sodium daily to prevent straining during bowel movements Pain management use acetaminophen for pain as needed. Avoid NSAIDs like ibuprofen as they may increase risk of bleeding Topical treatments you may use [id number] hemorrhoid creams like hydrocortisone or witch jory pads for symptom relief Fiber intake consume a high-fiber diet with fruits, vegetables, whole grains and legumes to promote soft stools. Hydration drink plenty of water 8-10 glasses per day to stay hydrated and support bowel regularity Avoid straining do not strain during bowel movements. Respond to the urge to defecate promptly Hygiene after bowel movements, gently clean the anal area with unscented wipes or warm water. physical activity resume light physical activity as tolerated to improve circulation and bowel function. Avoid heavy lifting or strenuous exercise for few days Rest as needed if you experience dizziness, and rise slowly from a sitting or lying position. Minor bleeding is common with internal hemorrhoids. However if you notice heavy bleeding more than a few drops, black/ tarry stools, or feel faint, seek medical attention Follow up with your primary care provider and postmaster relief in 1-2 weeks Seek medical attention immediately if you experience the following Persistent or worsening rectal bleeding Severe pain or swelling Dizziness or signs of dehydration Fever or chills Home Medications: Active Scripts Docusate Sodium (Colace) 100 Mg Capsule, 1 CAP PO BID for 30 Days, #60 CAP 0 Refills Prov:ALAN WHITLEY SOFTWARE REVERSE ENGINEER 07/31/24 Reported Medications Lactulose (Lactulose) 10 Gram/15 Ml Solution, 15 ML PO BID for constipation, #500 ML 0 Refills 11/03/24 Amlodipine Besylate (Amlodipine Besylate) 5 Mg Tablet, 1 TAB PO DAILY for 30 Days, #30 TAB 0 Refills 11/03/24 Methenamine Mandelate (Methenamine Mandelate) 1 Gram Tablet, 1 TAB PO DAILY for 30 Days, #60 TAB 0 Refills 11/03/24 Pioglitazone HCl (Pioglitazone HCl) 15 Mg Tablet, 1 TAB PO DAILY for 30 Days, #30 TAB 0 Refills 11/03/24 Ergocalciferol (Vitamin D2) (Vitamin D2) 1,250 Mcg (45937 Unit) Capsule, 1250 MCG PO QWEEK, CAP 11/03/24 Atorvastatin Calcium (Atorvastatin Calcium) 20 Mg Tablet, 1 TAB PO HS for 30 Days, #30 TAB 0 Refills 07/29/24 Paroxetine HCl (Paroxetine HCl) 20 Mg Tablet, 20 MG PO HS, TAB 07/29/24 Donepezil HCl (Donepezil HCl) 10 Mg Tablet, 10 MG PO HS, TAB 07/29/24 Memantine HCl (Memantine HCl) 10 Mg Tablet, 10 MG PO BID, TAB 07/29/24 Discontinued Reported Medications Metformin HCl (Metformin HCl) 500 Mg Tablet, 1 TAB PO DAILY for 30 Days, #60 TAB 0 Refills 07/29/24 Discontinued Scripts Ferrous Sulfate (Ferrous Sulfate) 325 Mg (65 Mg Iron) Tablet, 1 TAB PO BID for 30 Days, #60 TAB 0 Refills Prov:ALAN WHITLEY NP 07/31/24 Continued Medications: Amlodipine Besylate (Amlodipine Besylate) 5 Mg Tablet 1 TAB PO DAILY for 30 Days, #30 TAB 0 Refills Atorvastatin Calcium (Atorvastatin Calcium) 20 Mg Tablet 1 TAB PO HS for 30 Days, #30 TAB 0 Refills Docusate Sodium (Colace) 100 Mg Capsule 1 CAP PO BID for 30 Days, #60 CAP 0 Refills Donepezil HCl (Donepezil HCl) 10 Mg Tablet 10 MG PO HS, TAB Ergocalciferol (Vitamin D2) (Vitamin D2) 1,250 Mcg (45407 Unit) Capsule 1250 MCG PO QWEEK, CAP Memantine HCl (Memantine HCl) 10 Mg Tablet 10 MG PO BID, TAB Methenamine Mandelate (Methenamine Mandelate) 1 Gram Tablet 1 TAB PO DAILY for 30 Days, #60 TAB 0 Refills Paroxetine HCl (Paroxetine HCl) 20 Mg Tablet 20 MG PO HS, TAB Pioglitazone HCl (Pioglitazone HCl) 15 Mg Tablet 1 TAB PO DAILY for 30 Days, #30 TAB 0 Refills Discontinued Medications: Lactulose (Lactulose) 10 Gram/15 Ml Solution 15 ML PO BID for constipation, #500 ML 0 Refills Time spent arranging discharge: 1-30 minutes ATTESTATION BY PHYSICIAN I have seen and examined the patient. I reviewed the documentation, medical decision making, and treatment plan as noted by the resident provider above. I agree with the findings and plan of care. Praneeth Henriquez MD, KEERTI K MD Nov 04, 2024 09:31
--- NOTE | 2024-11-04 09:33 | PN ---
GASTROENTEROLOGY PROGRESS NOTE Date of Visit: Nov 04, 2024 Time of Visit: 09:33 Events / Notes: No acute events overnight. Patient s/p colonoscopy revealing large hemorrhoids. PLan of care discussed with patient and family. Denies fever, chills, abdominal pain, N/V, hematemesis, bloating, constipation, diarrhea, melena or hematochezia. Review of Systems: CONSTITUTIONAL: No malaise or change in sensation of wellbeing. ENMT: No rhinorrhea, otorrhea, sinus pain, ear ache. CARDIOVASCULAR: No angina, palpitations, orthopnea or paroxysmal dyspnea. RESPIRATORY: No SOB. GASTROINTESTINAL: No abdominal pain, nausea, vomiting, diarrhea, hematemesis, melena or change in the patient's habitual bowel movements consistency/number. GENITOURINARY: No dysuria, hematuria or change in bladder continence. MUSCULOSKELETAL: No new muscle pain or decrease in muscular strength. No new joint swelling, redness or tenderness. SKIN: No new rash. Physical Exam: GEN: Awake, alert, oriented in person, time and place, and in no acute distress. HEENT: No sinus tenderness. Tympanic membranes were not examined. No rhinorrhea. Oral pharyngeal mucosa is pink, moist and within normal limits. Neck is supple with no cervical lymphadenopathy, thyromegaly or JVD. CHEST: Inspection, palpation and percussion of the chest were unremarkable. Lung auscultation revealed normal breath sounds bilaterally. CARDIAC: PMI is within normal limits. Heart sounds are regular. Normal S1, S2. No gallop or murmur. ABD: Soft, non-tender and not distended. No peritoneal signs on palpation. No organomegaly. Normal bowel sounds. EXT: No cyanosis or clubbing. No edema. SKIN: Intact. No rashes. JOINTS: No evidence of synovitis or acute arthritis. NEURO: Alert and oriented to name, place and person. Cranial nerve examination is unremarkable. No focal motor deficits. Normal speech. Gait is normal. Strength is normal. Vital Signs (last 8hr) Date Time Temp Pulse Resp B/P (MAP) Pulse Ox O2 Delivery O2 Flow Rate FiO2 11/04/24 08:00 98.4 62 16 133/78 97 Room Air 11/04/24 04:00 98.2 77 17 132/56 98 Room Air Laboratory: [ ] Laboratory: Test 11/04/24 06:05 11/04/24 05:49 11/03/24 07:08 11/03/24 01:58 Range/Units White Blood Count 5.0 4.8-10.8 K/uL Red Blood Count 3.15 L 4.00-5.50 MIL/uL Hemoglobin 9.8 L 12.0-16.0 g/dL Hematocrit 29.8 L 36-48 % Mean Corpuscular Volume 94.6 79-99 fL Mean Corpuscular Hemoglobin 31.1 27.0-33.0 pg Mean Corpuscular Hemoglobin Concent 32.9 32.0-36.0 g/dL Red Cell Distribution Width 13.6 11.0-15.5 % Platelet Count 171 130-400 K/uL Mean Platelet Volume 11.7 H 7.5-10.5 fL Immature Granulocyte % (Auto) 0.2 0-1 % Neutrophils (%) (Auto) 71.9 40.0-77.0 % Lymphocytes (%) (Auto) 20.2 L 21.0-51.0 % Monocytes (%) (Auto) 7.1 3.0-13.0 % Eosinophils (%) (Auto) 0.4 0.0-8.0 % Basophils (%) (Auto) 0.2 0.0-5.0 % Neutrophils # (Auto) 3.6 1.8-7.7 K/uL Lymphocytes # (Auto) 1.0 1.0-4.8 K/uL Monocytes # (Auto) 0.4 0.1-1.0 K/uL Eosinophils # (Auto) 0.02 0.00-0.70 K/uL Basophils # (Auto) 0.01 0.00-0.20 K/uL Absolute Immature Granulocyte (auto 0.01 0-1 K/uL Nucleated Red Blood Cells 0.0 0.0-0.19 % Sodium Level 139 136-145 mmol/L Potassium Level 4.2 3.5-5.1 mmol/L Chloride Level 105 101-111 mmol/L Carbon Dioxide Level 29 21-32 mmol/L Blood Urea Nitrogen 6 L 7-18 mg/dL Creatinine 0.7 0.5-1.0 mg/dL Glomerular Filtration Rate Calc 89 >90 mL/min Random Glucose 126 H 70-105 mg/dL Total Calcium 8.6 8.5-10.1 mg/dL Total Bilirubin 0.3 0.2-1.0 mg/dL Aspartate Amino Transf (AST/SGOT) 25 10-37 U/L Alanine Aminotransferase (ALT/SGPT) 20 12-78 U/L Alkaline Phosphatase 36 L 50-136 U/L Total Protein 6.5 6.0-8.3 g/dL Albumin 3.1 L 3.5-5.0 g/dL Whole Blood Glucose 129 H 70-110 MG/DL Phosphorus Level 4.0 2.5-4.9 mg/dL Magnesium Level 2.00 1.80-2.40 mg/dL Total Creatine Kinase 155 # 21-232 U/L Prothrombin Time 11.0 9.6-11.6 SEC Prothromb Time International Ratio 1.04 0.85-1.15 Activated Partial Thromboplast Time 23.1 L 26.3-35.5 SEC Troponin I High Sensitivity 5 4-50 ng/L Current Medications Medications (Trade) Dose Ordered Sig/Naima Route PRN Reason Start Time Stop Time Status Last Admin Dose Admin Acetaminophen (TYLenol 325MG TAB) 650 mg Q6H PRN PO TEMPERATURE GREATER THAN 101.5 11/03/24 06:30 12/03/24 06:29 Amlodipine Besylate (NorvASC 5MG TAB) 5 mg DAILY PO 11/04/24 09:00 12/04/24 08:59 Aspirin (Aspirin 81mg Chew Tab) 81 mg DAILY PO 11/04/24 09:00 11/03/24 17:08 DC Atorvastatin Calcium (LIPItor 20MG) 20 mg HS PO 11/03/24 21:00 12/03/24 20:59 Docusate Sodium (COLace 100MG CAP) 100 mg BID PO 11/03/24 21:00 12/03/24 20:59 Donepezil HCl (ARIcept 5MG TAB) 10 mg HS PO 11/03/24 21:00 12/03/24 20:59 11/03/24 20:39 10 MG Famotidine (Pepcid 20mg Vial) 20 mg DAILY IV 11/03/24 09:00 12/03/24 08:59 11/03/24 08:40 20 MG Home Med (Home Medication) Methenamine Mandelate DAILY PO 11/04/24 09:00 12/04/24 08:59 Hydralazine HCl (APRESOLine 20MG INJ) 10 mg Q6H PRN IV For:SBP above 160;DBP above 90 11/03/24 06:30 12/03/24 06:29 Hydrocortisone (hyTONE 2.5% CREAM 28G) 1 APPL IP BID NAIMA BID TP 11/03/24 15:30 12/03/24 15:29 11/03/24 20:40 1 APPL Hydrocortisone Acetate (anuSOL-HC 25MG SUPP) 1 supp BID [place] 11/03/24 15:30 12/03/24 15:29 11/03/24 20:40 1 SUPP Insulin Human Regular (humuLIN R 100 UNIT/ML 3ML) INSULIN SLIDING SCAL... ACHS SQ 11/03/24 07:30 12/03/24 07:29 Lactated Ringer's 1,000 ml @ 75 mls/hr [id number] IV 11/03/24 06:30 12/03/24 06:29 11/03/24 20:31 75 MLS/HR Lactulose (Constulose 20gm/ 30ml Udcup) 10 gm BID PO 11/03/24 21:00 12/03/24 20:59 Magnesium Sulfate 50 ml @ 0 mls/hr PROTOCOL PRN IV MAGNESIUM PROTOCOL 11/03/24 09:00 12/03/24 08:59 Memantine (NAmenDA 5 MG TAB) 10 mg BID PO 11/03/24 21:00 12/03/24 20:59 11/03/24 20:40 10 MG Miscellaneous Medication (Donepezil HCl ) 10 mg HS PO 11/03/24 21:00 11/03/24 16:45 DC Miscellaneous Medication (Lactulose ) 15 ml BID PO 11/03/24 21:00 11/03/24 16:45 DC Miscellaneous Medication (Memantine HCl ) 10 mg BID PO 11/03/24 21:00 11/03/24 16:45 DC Morphine Sulfate (morPHINE 4MG SYG) 2 mg Q4H PRN IVP SEVERE PAIN (7-10) 11/03/24 06:30 11/10/24 06:29 Ondansetron HCl (zoFRAN 4MG INJ) 4 mg Q6H PRN IV NAUSEA/VOMITING 11/03/24 06:30 12/03/24 06:29 Paroxetine HCl (PAxil 20 MG TABLET) 20 mg HS PO 11/03/24 21:00 12/03/24 20:59 11/03/24 20:40 20 MG Potassium Chloride 100 ml @ 50 mls/hr AD PRN IV POTASSIUM PROTOCOL 11/03/24 07:00 12/03/24 06:59 Diagnostics / Radiology: [COPY/PASTE HERE IF NO REPORTS PLEASE DELETE SECTION] Assessment: Hemorrhoids Acute blood loss anemia DM HTN Plan: Continue GI prophylaxis Advance diet as tolerated Avoid NSAIDs Antireflux measures Monitor H&H and transfuse as needed Call with questions, concerns or change in clinical status Patient to follow-up at clinic post discharge Thank you for this consult NATALYA METCALF WAREHOUSE PRODUCTION WORKER Nov 04, 2024 09:33
[2024-11-04] MEDS: amLODIPine 5 MG TAB PO SCH (09:51)
--- NOTE | 2024-11-04 12:10 | NUR ---
DISCHARGE: BEING DC'D HOME. DC INSTRUCTIONS PROVIDED TO PT AND HER . INSTRUCTED TO F/U OUTPT WITH PCP AND GI, VERBALIZED UNDERSTANDING. KARY DAUGHTER, SPOKE WITH MD ON PLAN. IV REMOVED TIP INTACT.
[2024-11-04] MEDS ORDERED: morPHINE 2 MG SYG IVP PRN (12:30)
== END 2024-11-04 12:50 | disposition home or self-care (01) ==
LOC: EDH 01:35 → EDHIP 05:06 → 4BH 05:43
PROVIDERS: ADMIT Internal Medicine; ATTEND Internal Medicine
DX: K64.2 Third degree hemorrhoids (principal); E87.6 Hypokalemia; K63.5 Polyp of colon; K92.2 Gastrointestinal hemorrhage, unspecified; K63.89 Other specified diseases of intestine; D12.5 Benign neoplasm of sigmoid colon; D50.0 Iron deficiency anemia secondary to blood loss (chronic); E11.9 Type 2 diabetes mellitus without complications; E78.00 Pure hypercholesterolemia, unspecified; E86.0 Dehydration; E87.1 Hypo-osmolality and hyponatremia; G30.9 Alzheimer's disease, unspecified; F02.80 Dementia in other diseases classified elsewhere, unspecified severity, without behavioral disturbance, psychotic disturbance, mood disturbance, and anxiety; I10 Essential (primary) hypertension; G70.00 Myasthenia gravis without (acute) exacerbation; Z79.82 Long term (current) use of aspirin; Z98.890 Other specified postprocedural states; Z79.899 Other long term (current) drug therapy
CPT/HCPCS: 96374; 96361; 96375; 84132; 93005; 99285; 82550; 83735; 84100; 84484; 80048; 85025 ×2; 85610; 85730; 86850; 86900; 86901; 82948 ×3; 36415 ×2; 88305; 71045; 45380; 96376; 80053; G0378 ×30; J3490 ×3; J2270; J2704; J3480; A4620; A4215; A4223; A4222; J7030; A4606; 96365

== ENCOUNTER 2025-05-13 10:33 | Observation (INO) | payer MEDICARE, MEDICAID ==
[~2025-05-13] VITALS: Ht 157.5 cm; Wt 56.9 kg
[~2025-05-13 10:33] MED LIST changes: +AMLO-257 PO; -ASPI-1197 PO; +ERGO500093 PO; -FERR-72 PO; -METF-444 PO; +METH1TAB PO; +PIOG15TA66 PO
[2025-05-13 11:19] LABS: ADD UA MICROSCOPIC NO; APPEARANCE,URINE CLEAR (CLEAR); GLUCOSE, URINE (UA) NEGATIVE (NEGATIVE); LEUKOCYTE ESTERASE ,URINE NEGATIVE Leu/uL (NEGATIVE); NITRATE,URINE NEGATIVE (NEGATIVE); OCCULT BLOOD,URINE NEGATIVE (NEGATIVE)
--- NOTE | 2025-05-13 11:19 | ERN ---
General Chief Complaint: Eye Problems Stated Complaint: ALTERED MENTAL STATUS Time Seen by MD: 10:36 Source: patient History of Present Illness Initial Comments Patient is a 80-year-old female coming in was vision changes altered mental status. Per family member and patient she has been having this for a couple of days. Patient also presented with discomfort in both both eyes. Patient has been dealing with a chronic UTI. 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 Reported Medications Amlodipine Besylate (Amlodipine Besylate) 5 Mg Tablet, 1 TAB PO DAILY for 30 Days, #30 TAB 0 Refills 11/03/24 Methenamine Mandelate (Methenamine Mandelate) 1 Gram Tablet, 1 TAB PO DAILY for 30 Days, #60 TAB 0 Refills 25 Pioglitazone HCl (Pioglitazone HCl) 15 Mg Tablet, 1 TAB PO DAILY for 30 Days, #30 TAB 0 Refills 11/03/24 Ergocalciferol (Vitamin D2) (Vitamin D2) 1,250 Mcg (39915 Unit) Capsule, 1250 MCG PO QWEEK, CAP 11/03/24 Atorvastatin Calcium (Atorvastatin Calcium) 20 Mg Tablet, 1 TAB PO HS for 30 Days, #30 TAB 0 Refills 07/29/24 Paroxetine HCl (Paroxetine HCl) 20 Mg Tablet, 20 MG PO HS, TAB 07/29/24 Donepezil HCl (Donepezil HCl) 10 Mg Tablet, 10 MG PO HS, TAB 07/29/24 Memantine HCl (Memantine HCl) 10 Mg Tablet, 10 MG PO BID, TAB 07/29/24 Past Medical History Past Medical History: Dementia, Diabetes-Type II, High Cholesterol, UTI Past Surgical History: Other, BTL Surgical History Other: THYMECTOMY Social History Social History: Negative, Lives with family Female( History) History: Not Applicable ROS Dictation CONSTITUTIONAL: No chills, no fever, no weakness, no diaphoresis, no malaise. HEAD/FACE: No signs of trauma. EENT: No eye pain, no blurred vision, no tearing, no double vision, no ear pain, no ear discharge, no nose pain, no nasal congestion, no throat pain, no throat swelling, no mouth pain. RESPIRATORY: No cough, no orthopnea, no SOB, no stridor, no wheezing. CARDIOVASCULAR: No chest pain, no edema, no palpitations, no syncope. GASTROINTESTINAL/ABDOMINAL: No abdominal pain, no constipation, no diarrhea, no nausea, no vomiting. GENITOURINARY: No abnormal discharge, dysuria, no frequent urination, no hematuria. No complaints of pain in the genitals. MUSCULOSKELETAL: No back pain, no gout, no joint pain, no joint swelling, no muscle pain, no muscle stiffness, no neck pain. INTEGUMENTARY: No change in color, no change in hair/nails, no dryness, no lesion, no lumps, no rash. NEUROLOGICAL/PSYCH: No anxiety, not depressed, no emotional problem, no headache, no numbness, no pre-existing deficit, no history of seizures, no t remors, no weakness. HEMATOLOGIC/LYMPHATIC: Not anemic, no history of blood clots, no apparent bleeding, no bruising, glands not swollen. All Systems Negative, Except as Noted. Physical Exam Physical Exam Dictation VITAL SIGNS: Reviewed. GENERAL APPEARANCE: Alert, oriented x3, no acute distress, obese. HEAD AND FACE: Non-traumatic. EYES: PERRL, pink conjunctivas, eyelid no trauma, anterior chamber clear. EARS: Pinnas intact and no signs of trauma or erythema. Ear canals clear and no discharge. TMs no erythema. NOSE: No discharge, no bleeding. OROPHARYNX: Mouth normal, teeth no caries, tongue pink. Pharynx clear, no erythema. Tonsils no exudates, no abscesses noted. Mucous membrane moist. NECK: Supple, non-tender, no thyromegaly, no masses, no JVD, no bruits. BREAST: Deferred. CHEST: No tenderness, no crepitus, no paradoxical movement, no retractions. LUNGS: Clear, well-ventilated, symmetric, no rales, no wheezing, no rhonchi, no stridor, good breath sounds bilaterally. HEART: Regular rate, regular rhythm, no murmur, no gallops. VASCULAR: No peripheral edema. ABDOMEN: Soft, positive bowel sounds, nondistended, no guarding, nontender, no rebound, no masses no hepatomegaly, no splenomegaly, no Resendiz's sign, no hernias. RECTAL: Deferred. GENITAL: Deferred. NEUROLOGICAL: Normal speech, gross motor function intact, gross sensory function intact. MUSCULOSKELETAL: Neck nontender, full range of motion, back nontender, full range of motion. EXTREMITIES: Nontender, full range of motion. SKIN: Color pink, dry, no turgor, no rash, no lacerations, no abrasions, no contusions. LYMPHATICS: Deferred. Results Laboratory and Microbiology Lab and Micro Result Laboratory Tests Test 05/13/25 11:06 05/13/25 11:12 05/13/25 11:52 Whole Blood Glucose 145 MG/DL (70-110) H Urine Color LIGHT-YELLOW (YELLOW) Urine Appearance CLEAR (CLEAR) Urine pH 6.5 (5.0-8.0) Urine Specific [place] 1.018 (1.001-1.031) Urine Protein NEGATIVE mg/dL (NEGATIVE) Urine Glucose (UA) NEGATIVE mg/dL (NEGATIVE) Urine Ketones NEGATIVE mg/dL (NEGATIVE) Urine Occult Blood NEGATIVE (NEGATIVE) Urine Nitrate NEGATIVE (NEGATIVE) Urine Bilirubin NEGATIVE mg/dL (NEGATIVE) Urine Urobilinogen 0.2 mg/dL (0.2-1.0) Urine Leukocyte Esterase NEGATIVE [place]oke/uL White Blood Count 4.7 K/uL (4.8-10.8) L Red Blood Count 4.06 MIL/uL (4.00-5.50) Hemoglobin 12.7 g/dL (12.0-16.0) Hematocrit 38.5 % (36-48) Mean Corpuscular Volume 94.8 fL (79-99) Mean Corpuscular Hemoglobin 31.3 pg (27.0-33.0) Mean Corpuscular Hemoglobin Concent 33.0 g/dL (32.0-36.0) Red Cell Distribution Width 14.1 % (11.0-15.5) Platelet Count 164 K/uL (130-400) Mean Platelet Volume 11.5 fL (7.5-10.5) H Immature Granulocyte % (Auto) 0.2 % (0-1) Neutrophils (%) (Auto) 61.0 % (40.0-77.0) Lymphocytes (%) (Auto) 28.5 % (21.0-51.0) Monocytes (%) (Auto) 8.2 % (3.0-13.0) Eosinophils (%) (Auto) 1.7 % (0.0-8.0) Basophils (%) (Auto) 0.4 % (0.0-5.0) Neutrophils # (Auto) 2.8 K/uL (1.8-7.7) Lymphocytes # (Auto) 1.3 K/uL (1.0-4.8) Monocytes # (Auto) 0.4 K/uL (0.1-1.0) Eosinophils # (Auto) 0.08 K/uL (0.00-0.70) Basophils # (Auto) 0.02 K/uL (0.00-0.20) Absolute Immature Granulocyte (auto 0.01 K/uL (0-1) Nucleated Red Blood Cells 0.0 % (0.0-0.19) Prothrombin Time 10.9 SEC (9.6-11.6) Prothromb Time International Ratio 1.03 (0.85-1.15) Activated Partial Thromboplast Time 27.6 SEC (26.3-35.5) Sodium Level 137 mmol/L (136-145) Potassium Level 3.8 mmol/L (3.5-5.1) Chloride Level 100 mmol/L (101-111) L Carbon Dioxide Level 33 mmol/L (21-32) H Blood Urea Nitrogen 13 mg/dL (7-18) Creatinine 0.7 mg/dL (0.5-1.0) Glomerular Filtration Rate Calc 88 mL/min (>90) Random Glucose 125 mg/dL (70-105) H Total Calcium 8.9 mg/dL (8.5-10.1) Total Creatine Kinase 98 U/L (21-232) # Troponin I High Sensitivity 5 ng/L (4-50) LDL Cholesterol 71 mg/dL (0-99) Labs Reviewed?: Yes EKG/XRAY/US/CT/MRI EKG Comment 05/13/2025 time 10:58 a.m. Ventricular rate 62 Sinus rhythm [place] [address] wave elevation or depression X-RAY Comment [address] [address] IMAGING REPORT Signed PATIENT: VICKI MOHAN MR#: [id number] : 1945 SEX: F AGE: 80 LOCATION: [facility] ORDER 105 STATUS: REG ER [facility] REPORT#: [id number] SERVICE 105 REASON: ams ORDERING PHYSICIAN: JEFF TOVAR MD PROCEDURE: CXR1VW - CHEST 1VW CHEST 1VW REASON: ams COMPARISON: From 11/03/2024 is available. FINDINGS: Single view of the chest was obtained. Lungs are clear. Heart size is normal. Patient is status post median sternotomy. There is no pulmonary vascular congestion. Mediastinum and bony thorax appear unremarkable. IMPRESSION: 1. Status post median sternotomy. 2. No evidence of airspace consolidation or pulmonary venous congestion and unchanged from prior study.. DICTATED BY: NEGIN JAVIER MD DATE: 05/13/251134 ELECTRONICALLY SIGNED BY: NEGIN JAVIER MD DATE: 05/13/251137 [place] [address] IMAGING REPORT Signed PATIENT: VICKI MOHAN MR#: [id number] : 1945 SEX: F AGE: 80 LOCATION: ED ORDER 105 STATUS: REG ER REPORT#: [id number] SERVICE 105 REASON: ams ORDERING PHYSICIAN: JEFF TOVAR MD PROCEDURE: HEAD WO - CT HEAD/BRAIN W/O CONTRAST Exam: NONCONTRAST CT BRAIN REASON: ams. COMPARISON: Prior MRI from 07/31/2024 is available. TECHNIQUE: Images are obtained from vertex to the skull base. The exam was performed without IV contrast. FINDINGS: There is there is an old infarct with encephalomalacia involving the left periventricular white matter.. There are no focal mass lesions. There is is no evidence of intracranial hemorrhage or acute stroke. Ventricles and sulci appear normal. Posterior fossa and brainstem structures are unremarkable. Paranasal sinuses and remaining extracranial soft tissues appear normal as well.Severe global atrophy with periventricular ischemic white matter changes. There is a small air-fluid level seen in the right maxillary air cell. IMPRESSION: 1. No acute intracranial process 2. Severe global atrophy with periventricular ischemic white matter changes 3. Old infarct involving left periventricular region with encephalomalacia. This was also seen on the prior MRI. CT was performed with one or more following dose reduction techniques: automated exposure control, adjustment of the mA and kv according to patient's size, or use of a iterative reconstruction technique. DICTATED BY: NEGIN JAVIER MD DATE: 05/13/25 1137 ELECTRONICALLY SIGNED BY: NEGIN JAVIER MD DATE: 05/13/25 1142 MDM MDM: Differential diagnosis: TIA, CVA, UTI, Rationale: Tests considered and ordered secondary to shared decision making include: labs, ECG and radiology Previous outside records reviewed: Old ER visits. Risk of complication and/or morbidity or mortality of patient management: None Medications-Per medication reconciliation Need for hospitalization: Patient does meet criteria for hospitalization. Need for emergency major/minor surgery: No There are no social concerns with this patient. Prescription drug management Prescriptions will include symptomatic care Patient's prior external medical records from other ER visits were reviewed by me as indicated. Prior testing and results from previous visits were reviewed. Prior tests were taken into account with medical decision making and resource utilization, independent historian/historians were used to obtain complete medical history. I independently interpreted the test that were performed, results were reviewed by me and considered findings on radiology if ordered. Medical management and examination interpretation discussions were had by me with other qualified healthcare professionals as indicated for the patient's care. Presented to the emergency room initially complaining of eye discomfort. But per family member patient has been acting a little bit more confused in the last couple of days. That has concerns that patient might be having in his ischemic event. Patient does has a history of a previous CVA so concerns increased. Patient will be admitted under the care of hospitalist group for ongoing evaluation and management. ED Course Orders Procedure Category Date Status Time Cbc With Differential LAB 05/13/25 Complete 10:51 Prothrombin Time With LAB 05/13/25 Complete INR 10:51 Partial LAB 05/13/25 Complete Thromboplastin Time 10:51 Ct Head/Brain W/O CT 05/13/25 Resulted Contrast 10:51 Chest 1vw RAD 05/13/25 Resulted 10:51 12 Lead Ekg Tracing- EKG 05/13/25 Logged Technical 10:51 Creatine Kinase, Total LAB 05/13/25 Complete 10:51 Ldl Direct LAB 05/13/25 Complete 10:51 Troponin I High LAB 05/13/25 Complete Sensitivity 10:51 Urinalysis Profile LAB 05/13/25 Complete 10:51 Bedside Glucose CPOE 05/13/25 Transmitted Fingerstick 10:51 Basic Metabolic Panel LAB 05/13/25 Complete 10:51 Vital Signs Date Time Temp Pulse Resp B/P (MAP) Pulse Ox O2 Delivery O2 Flow Rate FiO2 05/13/25 11:10 98.2 62 16 145/58 98 Room Air* 0 21 05/13/25 10:35 98.2 63 20 149/60 98 Room Air 0 DX & DISP Disposition: Inpatient Decision to Admit Time: 12:50 Departure Impression: Primary Impression: CVA (cerebral vascular accident) Additional Impressions: TIA (transient ischemic attack), Altered mental status Condition: Stable Referrals: ALLI GUADALUPE MD (PCP) JEFF TOVAR MD May 13, 2025 11:19
--- NOTE | 2025-05-13 11:19 | NUR ---
PENDING TEST RESULTS FOR CT EXAM.
--- NOTE | 2025-05-13 11:38 | HMCIMG ---
CHEST 1VW REASON: ams COMPARISON: From 11/03/2024 is available. FINDINGS: Single view of the chest was obtained. Lungs are clear. Heart size is normal. Patient is status post median sternotomy. There is no pulmonary vascular congestion. Mediastinum and bony thorax appear unremarkable. IMPRESSION: 1. Status post median sternotomy. 2. No evidence of airspace consolidation or pulmonary venous congestion and unchanged from prior study..
--- NOTE | 2025-05-13 11:42 | HMCIMG ---
Exam: NONCONTRAST CT BRAIN REASON: ams. COMPARISON: Prior MRI from 07/31/2024 is available. TECHNIQUE: Images are obtained from vertex to the skull base. The exam was performed without IV contrast. FINDINGS: There is there is an old infarct with encephalomalacia involving the left periventricular white matter.. There are no focal mass lesions. There is is no evidence of intracranial hemorrhage or acute stroke. Ventricles and sulci appear normal. Posterior fossa and brainstem structures are unremarkable. Paranasal sinuses and remaining extracranial soft tissues appear normal as well.Severe global atrophy with periventricular ischemic white matter changes. There is a small air-fluid level seen in the right maxillary air cell. IMPRESSION: 1. No acute intracranial process 2. Severe global atrophy with periventricular ischemic white matter changes 3. Old infarct involving left periventricular region with encephalomalacia. This was also seen on the prior MRI. CT was performed with one or more following dose reduction techniques: automated exposure control, adjustment of the mA and kv according to patient's size, or use of a iterative reconstruction technique.
[2025-05-13 11:58] LABS: IMMATURE GRANULOCYTE ABSOLUTE 0.01 K/uL (0-1); NUCLEATED RED BLOOD CELLS 0.0 % (0.0-0.19); PLATELET COUNT (AUTO) 164 K/uL (130-400); RED BLOOD CELL COUNT(AUTO) 4.06 MIL/uL (4.00-5.50); RED CELL DISTRIBUTION WIDTH 14.1 % (11.0-15.5); WHITE BLOOD COUNT (AUTO) 4.7 K/uL (4.8-10.8)
[2025-05-13 12:07] LABS: CREATININE 0.7 mg/dL (0.5-1.0); GLOMERULAR FILTR. RATE CALC 88.0 mL/min (>90); GLUCOSE,RANDOM 125.0 mg/dL (70-105); SODIUM SERUM 137.0 mmol/L (136-145); UREA NITROGEN, BLOOD 13.0 mg/dL (7-18)
[2025-05-13 12:10] LABS: INR 1.03 (0.85-1.15)
[2025-05-13 12:12] LABS: CREATINE KINASE, TOTAL 98.0 U/L (21-232); LDL DIRECT 71.0 mg/dL (0-99)
--- NOTE | 2025-05-13 13:32 | EKG ---
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
--- NOTE | 2025-05-13 13:36 | NUR ---
TRANSFERED CARE TO [facility] AT THIS TIME
--- NOTE | 2025-05-13 13:56 | HP ---
[facility] HISTORY AND PHYSICAL Date of Service: May 13, 2025 Time of Service: 13:44 HISTORY OF PRESENT ILLNESS: 82-year-old female with past medical history of dementia hypertension, hyperlipidemia who presented to the hospital secondary to confusion. History is mainly obtained from patient's daughter. The patient is unable to participate in conversations. Patient's is also present at bedside. The patient has underlying history of dementia but was noted to have increasing confusion for the past 3-4 days. Per daughter patient was being treated for UTI. Her urine cultures grew Enterococcus and she was currently on ciprofloxacin. Patient was also noted to have bilateral redness on the eye. Per daughter patient has been picking mendez on the outside. She has been less active compared to before. Per she has been eating and she denies any nausea, vomiting, abdominal pain. History is limited since patient is not able to participate in conversation. Has a history of chronic UTI and previously was on suppressive therapy. Labs showed white count of 4.7, hemoglobin was 12.7, platelet count was 164 K, sodium was 137, potassium was 3.8, chloride was 100, bicarb was 33 , creatinine was 0.7, troponin was negative x1 Patient underwent CT head which showed no acute intracranial process. There was severe global atrial fib with periventricular ischemic white matter changes. There was a old infarct involving the left periventricular region with encephalomalacia. This was also present and a previous MRI performed in 2023 REVIEW OF SYSTEMS CONSTITUTIONAL: Denies fevers, chills, or night sweats. No unintentional weight loss reported. NEUROLOGICAL: Denies headache, amaurosis fugax, motor weakness, sensory deficit, vertigo/spinning sensation, gait abnormalities, or tremors. Positive for confusion ENT: No hearing loss, otalgia, otorrhea, rhinitis, rhinorrhea, hoarseness, or sore throat. Positive for redness in the eyes bilaterally CARDIOVASCULAR: Denies any exertional angina, dyspnea on exertion, orthopnea, paroxysmal nocturnal dyspnea, palpitations, life-threatening arrhythmias, claudication. PULMONARY: Denies any shortness of breath, cough, phlegm/sputum, hemoptysis, pleuritic chest pain. GASTROINTESTINAL: Denies any type of dysphagia to either liquids or solids. Denies nausea, vomiting, pyrosis, early satiety, abdominal pain, diarrhea, constipation, or changes in stool consistency or caliber. Denies coffee-ground emesis, hematemesis, hematochezia, or melanotic stools. GENITOURINARY: Denies frequency, urgency, nocturia, hematuria or incontinence (Storage/Irritative symptoms.) Low urinary stream, straining to void, urinary intermittency or hesitancy, splitting of the voiding stream, terminal dribbling. ENDOCRINOLOGIC: Denies polyuria, polydipsia, polyphagia or heat/cold intolerances. HEMATOLOGIC: Denies thrombophilia/previous clots, or coagulopathy/bleeding disorders. ONCOLOGIC: Denies personal history of malignancy. DERMATOLOGIC: Denies rashes or pruritus. PSYCHIATRIC: Denies any suicidal or homicidal ideation. Denies hallucinations. PAST MEDICAL HISTORY: Dementia, hypertension, hyperlipidemia, history of myasthenia gravis currently not on any medication. She has not been taking medication for the past 20 years PAST SURGICAL HISTORY: bilateral tubal ligation, thymectomy PAST SOCIAL HISTORY: Denied any smoking, alcohol, drug use FAMILY HISTORY: Denied any pertinent family history Coded Allergies: No Known Allergies (Unverified Allergy, Unknown, 02/12/23) PHYSICAL EXAM GENERAL APPEARANCE: The patient is awake, alert, and oriented, in no acute cardiopulmonary distress. NEUROLOGICAL: Cranial nerves II-XII grossly intact. Motor is 5/5 in bilateral upper and lower extremities proximal to distal. No sensory deficits. HEENT: Face is symmetric. Pupils are equal and reactive. Patient Has redness in the eyes bilaterally. There is no discharge noted. NECK: Supple. No JVD. No thyromegaly. No submental, submandibular, pre- /postauricular, occipital or supraclavicular lymphadenopathy. CHEST: Normal chest expansion. No Telemetry. LUNGS: Absence of any rales, rhonchi or any wheezing. CARDIOVASCULAR: Regular. S1 and S2 normal. No appreciable rubs, murmurs or gallops. ABDOMEN: Soft, nontender, and nondistended. There is no rebound, voluntary guarding, or rigidity. : Deferred. No Reyes. EXTREMITIES: Non-edematous and not cyanotic. No clubbing. Good capillary refill. SKIN: No skin breakdown. Vital Sign (Last 24 Hours) 05/13/25 11:10 Temp 98.2 Pulse 62 Resp 16 B/P (MAP) 145/58 Pulse Ox 98 O2 Delivery Room Air* O2 Flow Rate 0 FiO2 21 LABS: Laboratory: Test 05/13/25 11:52 05/13/25 11:12 05/13/25 11:06 Range/Units White Blood Count 4.7 L 4.8-10.8 K/uL Red Blood Count 4.06 4.00-5.50 MIL/uL Hemoglobin 12.7 12.0-16.0 g/dL Hematocrit 38.5 36-48 % Mean Corpuscular Volume 94.8 79-99 fL Mean Corpuscular Hemoglobin 31.3 27.0-33.0 pg Mean Corpuscular Hemoglobin Concent 33.0 32.0-36.0 g/dL Red Cell Distribution Width 14.1 11.0-15.5 % Platelet Count 164 130-400 K/uL Mean Platelet Volume 11.5 H 7.5-10.5 fL Immature Granulocyte % (Auto) 0.2 0-1 % Neutrophils (%) (Auto) 61.0 40.0-77.0 % Lymphocytes (%) (Auto) 28.5 21.0-51.0 % Monocytes (%) (Auto) 8.2 3.0-13.0 % Eosinophils (%) (Auto) 1.7 0.0-8.0 % Basophils (%) (Auto) 0.4 0.0-5.0 % Neutrophils # (Auto) 2.8 1.8-7.7 K/uL Lymphocytes # (Auto) 1.3 1.0-4.8 K/uL Monocytes # (Auto) 0.4 0.1-1.0 K/uL Eosinophils # (Auto) 0.08 0.00-0.70 K/uL Basophils # (Auto) 0.02 0.00-0.20 K/uL Absolute Immature Granulocyte (auto 0.01 0-1 K/uL Nucleated Red Blood Cells 0.0 0.0-0.19 % Prothrombin Time 10.9 9.6-11.6 SEC Prothromb Time International Ratio 1.03 0.85-1.15 Activated Partial Thromboplast Time 27.6 26.3-35.5 SEC Sodium Level 137 136-145 mmol/L Potassium Level 3.8 3.5-5.1 mmol/L Chloride Level 100 L 101-111 mmol/L Carbon Dioxide Level 33 H 21-32 mmol/L Blood Urea Nitrogen 13 7-18 mg/dL Creatinine 0.7 0.5-1.0 mg/dL Glomerular Filtration Rate Calc 88 >90 mL/min Random Glucose 125 H 70-105 mg/dL Total Calcium 8.9 8.5-10.1 mg/dL Total Creatine Kinase 98 # 21-232 U/L Troponin I High Sensitivity 5 4-50 ng/L LDL Cholesterol 71 0-99 mg/dL Urine Color LIGHT-YELLOW YELLOW Urine Appearance CLEAR CLEAR Urine pH 6.5 5.0-8.0 Urine Specific [place] 1.018 1.001-1.031 Urine Protein NEGATIVE NEGATIVE mg/dL Urine Glucose (UA) NEGATIVE NEGATIVE mg/dL Urine Ketones NEGATIVE NEGATIVE mg/dL Urine Occult Blood NEGATIVE NEGATIVE Urine Nitrate NEGATIVE NEGATIVE Urine Bilirubin NEGATIVE NEGATIVE mg/dL Urine Urobilinogen 0.2 0.2-1.0 mg/dL Urine Leukocyte Esterase NEGATIVE NEGATIVE Brooke/uL Whole Blood Glucose 145 H 70-110 MG/DL Current Medications Medications (Trade) Dose Ordered Sig/Naima Route PRN Reason Start Time Stop Time Status Last Admin Dose Admin Acetaminophen (TYLenol 500MG TAB) 500 mg Q6H PRN PO MILD PAIN (1-3) 05/13/25 13:30 06/12/25 13:29 Famotidine (Pepcid 20mg Vial) 20 mg BID IV 05/13/25 21:00 06/12/25 20:59 Ondansetron HCl (zoFRAN 4MG INJ) 4 mg Q6H PRN IVP NAUSEA/VOMITING 05/13/25 13:30 06/12/25 13:29 Sodium Chloride 1,000 ml @ 75 mls/hr [id number] IV 05/13/25 13:30 06/12/25 13:29 DIAGNOSTICS / RADIOLOGY: CT head was reviewed ASSESSMENT: AMS differential secondary to progressive dementia old stroke versus secondary to medication from ciprofloxacin Dementia Bilateral conjunctivitis differential viral versus bacterial versus allergic Hypertension Hyperlipidemia Dehydration History of chronic UTI PLAN: - patient to be admitted to medical-surgical unit -in reference to AMS. Obtain brain MRI for further evaluation. Patient will be monitored on telemetry. We will request consultation with Neurology. Patient's UA was negative for UTI. The patient will be started on NS for gentle hydration. -patient to be started on erythromycin eye ointment for conjunctivitis. Monitor for now. Symptoms could be viral versus bacterial versus allergic. -obtain home medications which will be reconciled once available -check TSH, A1c, vitamin B12 , folic acid -further orders per hospitalization course. Advanced Care Planning Which of the following were discussed: Hospice care: Yes __ No _x_ Therapeutic options: Yes __ No __ Advance directives: Yes __ No __ Other discussions: Discussed with who?: patient daughter and (Patient, family or surrogates) Voluntary nature of this service was explained to the patient? Yes _x_ No __ Amount of time spent: 25 minutes ELVIA Durand MD, MD May 13, 2025 13:56
[2025-05-13] MEDS: 0.9%NACL 1000ML 1,000 ML IV SCH (14:08)
[2025-05-13] MEDS: ERYTHROMYCIN BASE 0.5% OPHTH OINT 1 GM TUBE OU ONE (14:08)
--- NOTE | 2025-05-13 15:00 | HMCIMG ---
EXAM: MR Brain with and without Intravenous Contrast. CLINICAL HISTORY: CONFUSION, ABnormal CT TECHNIQUE: Multisequence, multiplanar magnetic resonance images acquired of the brain with and without intravenous contrast. CONTRAST: COMPARISON: MR - MR BRAIN W/ STEM WO CON 07/31/24 16:33 EST FINDINGS: BRAIN: Stable chronic infarct with surrounding gliotic changes along the left centrum semiovale, cueto radiata, and inferiorly extending up to the left basal ganglia region. Similar generalized cerebral atrophy with severe volume loss along the bilateral fronto-parietal and temporal lobes. Complete volume loss of the left temporal lobe is disproportionate to other lobes. Small vessel ischemic changes. No restricted diffusion to indicate acute infarction. No intracranial mass or hemorrhage. No midline shift or extra-axial fluid collection. No cerebellar tonsillar ectopia. No abnormal enhancement. The central arterial and venous flow voids are patent. VENTRICLES: Ex-vacuo dilatation of the ventricles secondary to severe cerebral volume loss. ORBITS: The orbits are normal. SINUSES AND MASTOIDS: Ethmoid, sphenoid sinusitis, and right maxillary sinusitis. The mastoid air cells are clear. BONES: No acute fracture or aggressively appearing osseous lesion. IMPRESSION: 1. No acute intracranial findings. 2. Stable chronic left-sided infarct with gliosis involving the centrum semiovale, cueto radiata, and basal ganglia. 3. Severe generalized cerebral atrophy, most pronounced in the left temporal lobe. 4. Small vessel ischemic changes. 5. Ex-vacuo ventricular dilatation. 6. Ethmoid, sphenoid, and right maxillary sinusitis. /[place]
[2025-05-13 15:44] LABS: SARS-CoV-2, RNA, NAAT NEGATIVE SARS CoV-2 (NEGATIVE)
[2025-05-13 15:48] LABS: INFLUENZA TYPE A Negative For Type A (NEGATIVE); INFLUENZA TYPE B Negative For Type B (NEGATIVE)
[2025-05-13 17:10] VITALS: BP 143/72; PULSE 66; RESP 18; TEMP 98.2
[2025-05-13 17:15] VITALS: O2SAT 97
[2025-05-13] MEDS ORDERED: PoTASSium chl 10% ELIXIR 20MEQ 20 MEQ/15 ML UDCUP PO PRN (18:00)
[2025-05-13] MEDS: PoTASSium chloRIDE 20MEQ ER 20 MEQ ERTAB PO PRN (19:13)
[2025-05-13 20:00] VITALS: BP 158/76; PULSE 63; RESP 20; TEMP 98.3; O2SAT 100
[2025-05-13] MEDS ORDERED: OXYB5TAB20 PO (20:24)
[2025-05-13] MEDS: FAMOTIDINE 20MG VIAL IV SCH (20:26)
[2025-05-13 20:44] LABS: APPEARANCE,URINE CLEAR (CLEAR); GLUCOSE, URINE (UA) NEGATIVE (NEGATIVE); LEUKOCYTE ESTERASE ,URINE NEGATIVE Leu/uL (NEGATIVE); NITRATE,URINE NEGATIVE (NEGATIVE); OCCULT BLOOD,URINE NEGATIVE (NEGATIVE)
[2025-05-13 20:46] LABS: ADD UA MICROSCOPIC NO
[2025-05-14] VITALS (9 sets, daily range): BP systolic 123–137; BP diastolic 57–65; PULSE 59–67; RESP 16–20; TEMP 98–99; O2SAT 97–98
[2025-05-14 04:18] LABS: IMMATURE GRANULOCYTE ABSOLUTE 0.02 K/uL (0-1); NUCLEATED RED BLOOD CELLS 0.0 % (0.0-0.19); PLATELET COUNT (AUTO) 160 K/uL (130-400); RED BLOOD CELL COUNT(AUTO) 3.96 MIL/uL (4.00-5.50); RED CELL DISTRIBUTION WIDTH 13.7 % (11.0-15.5); WHITE BLOOD COUNT (AUTO) 6.8 K/uL (4.8-10.8)
[2025-05-14 04:42] LABS: CREATINE KINASE, TOTAL 288 U/L (21-232); CREATININE 0.7 mg/dL (0.5-1.0); GLOMERULAR FILTR. RATE CALC 88 mL/min (>90); GLUCOSE,RANDOM 102 mg/dL (70-105); SODIUM SERUM 141 mmol/L (136-145); UREA NITROGEN, BLOOD 11 mg/dL (7-18)
[2025-05-14] MEDS: amLODIPine 5 MG TAB PO SCH (08:33)
[2025-05-14] MEDS: METHENAMINE MANDELATE PO SCH (09:00)
--- NOTE | 2025-05-14 10:01 | PN ---
[facility] PROGRESS NOTE Date of Service: May 14, 2025 Time of Service: 09:58 SUBJECTIVE: 05/14 patient is seen and examined at bedside, case discussed with the RN, no acute events overnight, time of my visit patient is awake, she is following commands, however unable to tell me to dictate. present in the room at the time of my visit. Patient noted to have bilateral erythematous conjunctiva. No purulent discharge noted. Results of MRI of the brain no acute intracranial findings, stable chronic left-sided infarct with gliosis involving the centrum semiovale, cueto radiata and basal ganglia, severe generalized cerebral atrophy most pronounced in the left temporal lobe, small-vessel ischemic changes, ex vacuo ventricular dilatation, ethmoid, sphenoid and right maxillary sinusitis. Finding discussed with the . We have requested Neurology consultation, we will follow input and recommendation. Continue with sitter at bedside, fall precautions, start Rocephin 1 g IV daily, antibiotic eyedrops we will be started based on pharmacy formulation. Check rapid strep, influenza as well as SARS antigen. Continue to monitor neurological status. TSH of 1.73. B12 of 1818. Folic acid greater than 20. REVIEW OF SYSTEMS CONSTITUTIONAL: Denies fevers, chills, or night sweats. No unintentional weight loss reported. NEUROLOGICAL: Denies headache, amaurosis fugax, motor weakness, sensory deficit, vertigo/spinning sensation, gait abnormalities, or tremors. Positive for confusion ENT: No hearing loss, otalgia, otorrhea, rhinitis, rhinorrhea, hoarseness, or sore throat. Positive for redness in the eyes bilaterally CARDIOVASCULAR: Denies any exertional angina, dyspnea on exertion, orthopnea, paroxysmal nocturnal dyspnea, palpitations, life-threatening arrhythmias, claudication. PULMONARY: Denies any shortness of breath, cough, phlegm/sputum, hemoptysis, pleuritic chest pain. GASTROINTESTINAL: Denies any type of dysphagia to either liquids or solids. Denies nausea, vomiting, pyrosis, early satiety, abdominal pain, diarrhea, constipation, or changes in stool consistency or caliber. Denies coffee-ground emesis, hematemesis, hematochezia, or melanotic stools. GENITOURINARY: Denies frequency, urgency, nocturia, hematuria or incontinence (Storage/Irritative symptoms.) Low urinary stream, straining to void, urinary intermittency or hesitancy, splitting of the voiding stream, terminal dribbling. ENDOCRINOLOGIC: Denies polyuria, polydipsia, polyphagia or heat/cold intolerances. HEMATOLOGIC: Denies thrombophilia/previous clots, or coagulopathy/bleeding disorders. ONCOLOGIC: Denies personal history of malignancy. DERMATOLOGIC: Denies rashes or pruritus. PSYCHIATRIC: Denies any suicidal or homicidal ideation. Denies hallucinations. PHYSICAL EXAM GENERAL APPEARANCE: The patient is awake, alert, and oriented, in no acute cardiopulmonary distress. NEUROLOGICAL: Cranial nerves II-XII grossly intact. Motor is 5/5 in bilateral upper and lower extremities proximal to distal. No sensory deficits. HEENT: Face is symmetric. Pupils are equal and reactive. Patient Has redness in the eyes bilaterally. There is no discharge noted. NECK: Supple. No JVD. No thyromegaly. No submental, submandibular, pre- /postauricular, occipital or supraclavicular lymphadenopathy. CHEST: Normal chest expansion. No Telemetry. LUNGS: Absence of any rales, rhonchi or any wheezing. CARDIOVASCULAR: Regular. S1 and S2 normal. No appreciable rubs, murmurs or gallops. ABDOMEN: Soft, nontender, and nondistended. There is no rebound, voluntary guarding, or rigidity. : Deferred. No Reyes. EXTREMITIES: Non-edematous and not cyanotic. No clubbing. Good capillary refill. SKIN: No skin breakdown. Vital Signs (last 8hr) Date Time Temp Pulse Resp B/P (MAP) Pulse Ox O2 Delivery O2 Flow Rate FiO2 05/14/25 08:43 97 Room Air* 0 21 05/14/25 08:00 98.2 62 19 130/64 97 Room Air 05/14/25 04:00 98.4 61 20 133/65 96 Room Air LABS: Laboratory: Test 05/14/25 03:48 05/13/25 19:56 05/13/25 15:22 05/13/25 11:52 Range/Units White Blood Count 6.8 # 4.8-10.8 K/uL Red Blood Count 3.96 L 4.00-5.50 MIL/uL Hemoglobin 12.6 12.0-16.0 g/dL Hematocrit 37.2 36-48 % Mean Corpuscular Volume 93.9 79-99 fL Mean Corpuscular Hemoglobin 31.8 27.0-33.0 pg Mean Corpuscular Hemoglobin Concent 33.9 32.0-36.0 g/dL Red Cell Distribution Width 13.7 11.0-15.5 % Platelet Count 160 130-400 K/uL Mean Platelet Volume 11.6 H 7.5-10.5 fL Immature Granulocyte % (Auto) 0.3 0-1 % Neutrophils (%) (Auto) 65.2 40.0-77.0 % Lymphocytes (%) (Auto) 24.8 21.0-51.0 % Monocytes (%) (Auto) 8.7 3.0-13.0 % Eosinophils (%) (Auto) 0.7 0.0-8.0 % Basophils (%) (Auto) 0.3 0.0-5.0 % Neutrophils # (Auto) 4.4 1.8-7.7 K/uL Lymphocytes # (Auto) 1.7 1.0-4.8 K/uL Monocytes # (Auto) 0.6 0.1-1.0 K/uL Eosinophils # (Auto) 0.05 0.00-0.70 K/uL Basophils # (Auto) 0.02 0.00-0.20 K/uL Absolute Immature Granulocyte (auto 0.02 0-1 K/uL Nucleated Red Blood Cells 0.0 0.0-0.19 % Sodium Level 141 136-145 mmol/L Potassium Level 3.6 3.5-5.1 mmol/L Chloride Level 104 101-111 mmol/L Carbon Dioxide Level 30 21-32 mmol/L Blood Urea Nitrogen 11 7-18 mg/dL Creatinine 0.7 0.5-1.0 mg/dL Glomerular Filtration Rate Calc 88 >90 mL/min Random Glucose 102 70-105 mg/dL Total Calcium 8.5 8.5-10.1 mg/dL Magnesium Level 2.10 1.80-2.40 mg/dL Total Creatine Kinase 288 #H 21-232 U/L Vitamin B12 Level 1818 H 193-986 pg/mL Folic Acid (LAB) > 20.00 H 2-20 ng/mL Urine Color COLORLESS YELLOW Urine Appearance CLEAR CLEAR Urine pH 7.0 5.0-8.0 Urine Specific [place] 1.007 1.001-1.031 Urine Protein NEGATIVE NEGATIVE mg/dL Urine Glucose (UA) NEGATIVE NEGATIVE mg/dL Urine Ketones NEGATIVE NEGATIVE mg/dL Urine Occult Blood NEGATIVE NEGATIVE Urine Nitrate NEGATIVE NEGATIVE Urine Bilirubin NEGATIVE NEGATIVE mg/dL Urine Urobilinogen 0.2 0.2-1.0 mg/dL Urine Leukocyte Esterase NEGATIVE NEGATIVE [place]/uL Influenza Type A Antigen Negative For Type A NEGATIVE Influenza Type B Antigen Negative For Type B NEGATIVE SARS-CoV-2, RNA, NAAT NEGATIVE SARS CoV-2 NEGATIVE Prothrombin Time 10.9 9.6-11.6 SEC Prothromb Time International Ratio 1.03 0.85-1.15 Activated Partial Thromboplast Time 27.6 26.3-35.5 SEC Hemoglobin A1c 6.3 H 4.0-6.0 % Estimated Average Glucose (eAG) 134 H 70-126 mg/dL Troponin I High Sensitivity 5 4-50 ng/L LDL Cholesterol 71 0-99 mg/dL Procalcitonin < 0.05 L 0.05-0.5 ng/mL Thyroid Stimulating Hormone (TSH) 1.73 # 0.36-3.74 uIU/mL Test 05/13/25 11:06 Range/Units Whole Blood Glucose 145 H 70-110 MG/DL Current Medications Medications (Trade) Dose Ordered Sig/Naima Route PRN Reason Start Time Stop Time Status Last Admin Dose Admin Acetaminophen (TYLenol 500MG TAB) 500 mg Q6H PRN PO MILD PAIN (1-3) 05/13/25 13:30 06/12/25 13:29 05/13/25 19:31 500 MG Amlodipine Besylate (NorvASC 5MG TAB) 5 mg DAILY PO 05/14/25 09:00 06/13/25 08:59 05/14/25 08:33 5 MG Atorvastatin Calcium (LIPItor 20MG) 20 mg HS PO 05/13/25 21:00 06/12/25 20:59 05/13/25 20:26 20 MG Ceftriaxone Sodium (ROCEphine 1G INJ) 1 gm Q24H IVPB 05/14/25 09:30 05/24/25 09:29 Docusate Sodium (COLace 100MG CAP) 100 mg BID PO 05/13/25 21:00 06/12/25 20:59 05/14/25 08:33 100 MG Donepezil HCl (ARIcept 5MG TAB) 10 mg HS PO 05/13/25 21:00 06/12/25 20:59 05/13/25 20:20 10 MG Famotidine (Pepcid 20mg Vial) 20 mg BID IV 05/13/25 21:00 06/12/25 20:59 05/14/25 08:33 20 MG Home Med (Home Medication) DAILY PO 05/14/25 09:00 06/13/25 08:59 Memantine (NAmenDA 5 MG TAB) 10 mg BID PO 05/13/25 21:00 06/12/25 20:59 05/14/25 08:33 10 MG Ondansetron HCl (zoFRAN 4MG INJ) 4 mg Q6H PRN IVP NAUSEA/VOMITING 05/13/25 13:30 06/12/25 13:29 Paroxetine HCl (PAxil 20 MG TABLET) 20 mg HS PO 05/13/25 21:00 06/12/25 20:59 05/13/25 20:25 20 MG Potassium Chloride 100 ml @ 100 mls/hr AD PRN IV POTASSIUM PROTOCOL 05/13/25 18:00 06/12/25 17:59 Potassium Chloride (K-Dur/Klor-Con 20meq) 20 meq AD PRN PO POTASSIUM PROTOCOL 05/13/25 18:00 06/12/25 17:59 05/14/25 08:33 20 MEQ Potassium Chloride (KCl 10% Elixir 20meq/15ml) 20 meq AD PRN PO POTASSIUM PROTOCOL 05/13/25 18:00 06/12/25 17:59 Sodium Chloride 1,000 ml @ 75 mls/hr [id number] IV 05/13/25 13:30 06/12/25 13:29 05/13/25 14:08 75 MLS/HR DIAGNOSTICS / RADIOLOGY: [ ] ASSESSMENT: AMS differential secondary to progressive dementia old stroke versus secondary to medication from ciprofloxacin Dementia Bilateral conjunctivitis differential viral versus bacterial versus allergic Hypertension Hyperlipidemia Dehydration History of chronic UTI PLAN: patient is seen and examined at bedside, case discussed with the RN, no acute events overnight, time of my visit patient is awake, she is following commands, however unable to tell me to dictate. present in the room at the time of my visit. Patient noted to have bilateral erythematous conjunctiva. No purulent discharge noted. Results of MRI of the brain no acute intracranial findings, stable chronic left-sided infarct with gliosis involving the centrum semiovale, cueto radiata and basal ganglia, severe generalized cerebral atrophy most pronounced in the left temporal lobe, small-vessel ischemic changes, ex vacuo ventricular dilatation, ethmoid, sphenoid and right maxillary sinusitis. Finding discussed with the . We have requested Neurology consultation, we will follow input and recommendation. Continue with sitter at bedside, fall precautions, start Rocephin 1 g IV daily, antibiotic eyedrops we will be started based on pharmacy formulation. Check rapid strep, influenza as well as SARS antigen. Continue to monitor neurological status. TSH of 1.73. B12 of 1818. Folic acid greater than 20. NEURO: Minimize central acting medications as possible. Fall Precautions. Well lighted room through the day and minimize interruptions through the night to prevent acute delirium. PULMONARY: Supplemental 02 as needed BiPAP as necessary, for respiratory distress Titrate Fio2 to keep Spo2 > or = 90% DuoNebs and CPT as needed IS hourly while awake for pulmonary hygiene prn Out of bed to chair as tolerated Maintain aspiration precautions at all times CARDIOVASCULAR: Follow hemodynamics. Vital signs per facility protocol GI & NUTRITION: Continue nutritional support Aspirations precautions Prokinetic agents and laxatives as needed KIDNEYS & ELECTROLYTES: Strict monitoring of intake and output Daily weights Avoid nephrotoxic agents Monitor electrolytes and replace as needed Goal urine output of 30mL/hr or 0.5mL/kg/hr Medications to be dosed according to renal function. Avoid contrast if possible ENDOCRINE: Maintain blood glucose between 100-180 at all times. Insulin sliding scale for blood glucose management Hypoglycemia and hyperglycemia protocol in place INFECTIOUS DISEASE: Trend temperature, WBC and procalcitonin level Follow cultures, deescalate antibiotics as soon as possible. Panculture if new onset fever HEMATOLOGY & COAGULATION: Monitor H&H. Keep Hgb > 7 Transfuse 1 unit of PRBC for Hgb < 7 Transfuse 1 pack of platelets of platelets < 20, 000 Watch for any signs and symptoms of bleeding SKIN: Pressure ulcer prevention per facility protocol Specialty mattress as needed ORTHO/REHAB Continue PT/OT PRN: MEDICATIONS Tylenol 650 mg po every 4 hrs for fever zofran 4 mg IV every 6 hrs for n/v Hydralazine 5 mg IV every 4 hrs systolic pressure > 160 bowel regiment: lactulose 20 gm PO BID PRN constipation Supportive measures: Continue GI and DVT prophylaxis All questions answered time spent: > 35 min ANEL MCBRIDE MD May 14, 2025 10:01
[2025-05-14] MEDS: CIPROFLOXACIN HCL 0.3% 2.5ML DROPS OP PRN (15:12)
--- NOTE | 2025-05-14 15:32 | CONS ---
CONSULTATION NOTE Date of Service: May 14, 2025 Reason for Consultation: Eval of change of mental status Requesting Physician: Hospitalist HISTORY OF PRESENT ILLNESS: Ms. Larios is a 80-year-old right-handed female with a history of hypertension, dyslipidemia, and dementia presenting with increased confusion and disorientation over the past 4 days. The patient's daughter reports that one evening, Ms. Larios woke up to use the restroom and experienced blurry and dark vision upon returning. She appeared weak and had difficulty moving her legs and arms. The patient has a year-long history of memory problems, with her dementia progressing over time. Her daughter notes that Ms. Larios's current behavior, including being quiet and non-communicative, has been consistent for the past 8- 10 months. The patient is described as more of a "nocturnal creature," typically going to bed after breakfast. Prior to this episode, Ms. Larios had a urinary tract infection for which she was prescribed ciprofloxacin. There is no mention of current urinary symptoms or whether the antibiotic course was completed. Medical History - Dementia, progressing for over a year - Hypertension - Dyslipidemia - Prediabetes - Previous strokes on the left side of the brain - Left temporal and periventricular encephalomalacia - Recent urinary tract infection treated with ciprofloxacin Medications and Supplements - Ciprofloxacin - Taken for recent urinary tract infection Social History - Living Situation: Lives at home - Daily Routine: Nocturnal, goes to bed after breakfast - Communication: Speaks very seldom at home REVIEW OF SYSTEMS CONSTITUTIONAL: Denies fever, chills, or fatigue. HEAD/FACE: No signs of trauma. EENT: Denies eye pain, blurred vision, double vision, or light sensitivity. RESPIRATORY: Denies shortness of breath, cough, wheezing CARDIOVASCULAR: Denies chest pain, palpitation, syncope GASTROINTESTINAL/ABDOMINAL: Denies abdominal pain, constipation, diarrhea, nausea or vomiting GENITOURINARY: Denies dysuria or hematuria. MUSCULOSKELETAL: Denies joint pain, tenderness, or trauma. INTEGUMENTARY: Denies rash or itchiness NEUROLOGICAL/PSYCH: Denies anxiety, depression, heat or cold intolerance. PAST MEDICAL HISTORY: as above PAST SURGICAL HISTORY: as above PAST SOCIAL HISTORY: as above FAMILY HISTORY: none Coded Allergies: No Known Allergies (Unverified Allergy, Unknown, 02/12/23) PHYSICAL EXAM EYES: Anicteric. Pupils equal and reactive. HENT: No oral thrush seen, moist Oral mucosa NECK: Supple, no JVD or thyromegaly. LUNGS: Good air entry. No rales, no rhonchi. CARDIOVASCULAR: S1, S2 regular. No murmur heard. ABDOMEN: Soft, non tender, bowel sounds present, no organomegaly CENTRAL NERVOUS SYSTEM: Awake, alert, oriented x1. follow simple commands. SKIN: No rashes, no swelling. LYMPHATICS: No peripheral lymphadenopathy MUSCULOSKELETAL: No joint swelling, erythema or tenderness. EXTREMITIES: No cyanosis or clubbing BACK: No deformity, no pressure ulcer. GENITOURINARY: No dysuria or hematuria Vital Sign (Last 24 Hours) 05/14/25 05/14/25 08:43 11:47 Temp 98.4 Pulse 64 Resp 19 B/P (MAP) 137/59 Pulse Ox 96 O2 Delivery Room Air O2 Flow Rate 0 FiO2 21 LABS: Laboratory: Test 05/14/25 03:48 05/13/25 19:56 05/13/25 15:22 05/13/25 11:52 Range/Units White Blood Count 6.8 # 4.8-10.8 K/uL Red Blood Count 3.96 L 4.00-5.50 MIL/uL Hemoglobin 12.6 12.0-16.0 g/dL Hematocrit 37.2 36-48 % Mean Corpuscular Volume 93.9 79-99 fL Mean Corpuscular Hemoglobin 31.8 27.0-33.0 pg Mean Corpuscular Hemoglobin Concent 33.9 32.0-36.0 g/dL Red Cell Distribution Width 13.7 11.0-15.5 % Platelet Count 160 130-400 K/uL Mean Platelet Volume 11.6 H 7.5-10.5 fL Immature Granulocyte % (Auto) 0.3 0-1 % Neutrophils (%) (Auto) 65.2 40.0-77.0 % Lymphocytes (%) (Auto) 24.8 21.0-51.0 % Monocytes (%) (Auto) 8.7 3.0-13.0 % Eosinophils (%) (Auto) 0.7 0.0-8.0 % Basophils (%) (Auto) 0.3 0.0-5.0 % Neutrophils # (Auto) 4.4 1.8-7.7 K/uL Lymphocytes # (Auto) 1.7 1.0-4.8 K/uL Monocytes # (Auto) 0.6 0.1-1.0 K/uL Eosinophils # (Auto) 0.05 0.00-0.70 K/uL Basophils # (Auto) 0.02 0.00-0.20 K/uL Absolute Immature Granulocyte (auto 0.02 0-1 K/uL Nucleated Red Blood Cells 0.0 0.0-0.19 % Sodium Level 141 136-145 mmol/L Potassium Level 3.6 3.5-5.1 mmol/L Chloride Level 104 101-111 mmol/L Carbon Dioxide Level 30 21-32 mmol/L Blood Urea Nitrogen 11 7-18 mg/dL Creatinine 0.7 0.5-1.0 mg/dL Glomerular Filtration Rate Calc 88 >90 mL/min Random Glucose 102 70-105 mg/dL Total Calcium 8.5 8.5-10.1 mg/dL Magnesium Level 2.10 1.80-2.40 mg/dL Total Creatine Kinase 288 #H 21-232 U/L Vitamin B12 Level 1818 H 193-986 pg/mL Folic Acid (LAB) > 20.00 H 2-20 ng/mL Urine Color COLORLESS YELLOW Urine Appearance CLEAR CLEAR Urine pH 7.0 5.0-8.0 Urine Specific [place] 1.007 1.001-1.031 Urine Protein NEGATIVE NEGATIVE mg/dL Urine Glucose (UA) NEGATIVE NEGATIVE mg/dL Urine Ketones NEGATIVE NEGATIVE mg/dL Urine Occult Blood NEGATIVE NEGATIVE Urine Nitrate NEGATIVE NEGATIVE Urine Bilirubin NEGATIVE NEGATIVE mg/dL Urine Urobilinogen 0.2 0.2-1.0 mg/dL Urine Leukocyte Esterase NEGATIVE NEGATIVE [place]/uL Influenza Type A Antigen Negative For Type A NEGATIVE Influenza Type B Antigen Negative For Type B NEGATIVE SARS-CoV-2, RNA, NAAT NEGATIVE SARS CoV-2 NEGATIVE Prothrombin Time 10.9 9.6-11.6 SEC Prothromb Time International Ratio 1.03 0.85-1.15 Activated Partial Thromboplast Time 27.6 26.3-35.5 SEC Hemoglobin A1c 6.3 H 4.0-6.0 % Estimated Average Glucose (eAG) 134 H 70-126 mg/dL Troponin I High Sensitivity 5 4-50 ng/L LDL Cholesterol 71 0-99 mg/dL Procalcitonin < 0.05 L 0.05-0.5 ng/mL Thyroid Stimulating Hormone (TSH) 1.73 # 0.36-3.74 uIU/mL Test 05/13/25 11:06 Range/Units Whole Blood Glucose 145 H 70-110 MG/DL DIAGNOSTICS / RADIOLOGY: [ ] ASSESSMENT / PLAN: Ms Barroso is a 80-year-old right-handed female with a history of hypertension, dyslipidemia, and dementia presenting with increased confusion and disorientation over the past 4 days, following a recent urinary tract infection. Acute metabolic encephalopathy Assessment: Ms Barroso's altered mental status appears to be multifactorial. She has a known history of dementia for over a year, with progressive decline in cognitive function and communication. The recent exacerbation of confusion and disorientation may be related to her recent urinary tract infection, for which she was treated with ciprofloxacin. An acute cerebrovascular event has been ruled out by a clean MRI for acute stroke, though there is evidence of previous left-sided strokes (left temporal and periventricular encephalomalacia). The patient's family reports that her current presentation is consistent with her baseline over the past 8-10 months, suggesting this may represent progression of her underlying dementia rather than an acute change. Plan: - Continue follow-up with her neurologist, Dr. Moises Garcia - Arrange earlier follow-up appointment with Dr. Garcia due to recent hospitalization - Monitor for any acute changes in mental status Dementia Assessment: Ms Barroso has a history of dementia for over a year, with significant progression noted. She has become increasingly non-verbal and less interactive, primarily nocturnal, and spends most of her day sleeping after breakfast. The MRI shows evidence of previous left-sided strokes, which may contribute to her cognitive decline. Her current presentation is consistent with advanced dementia. Plan: - Continue current management plan - Follow up with neurologist, Dr. Moises Garcia Prediabetes Assessment: Lab work revealed a hemoglobin A1c of 6.3%, indicating prediabetes. Plan: - Monitor blood glucose levels - Consider lifestyle modifications as appropriate given the patient's overall condition Hypertension Assessment: Ms Barroso has a history of hypertension. No acute issues related to hypertension were noted during this encounter. Plan: - Continue current management Dyslipidemia Assessment: Ms Barroso has a history of dyslipidemia. No acute issues related to dyslipidemia were noted during this encounter. Plan: - Continue current management Recent Urinary Tract Infection Assessment: Ms Bugamat recently had a urinary tract infection, which was treated with ciprofloxacin. The current urinalysis is negative, suggesting resolution of the infection. Plan: - No further action required at this time - Monitor for recurrence of symptoms Thank you for your consultation. I will sign off. YEIMY BERNAL MD May 14, 2025 15:32
[2025-05-15 04:35] VITALS: BP 126/59; PULSE 68; RESP 20; TEMP 98.7
[2025-05-15 07:54] VITALS: BP 143/68; PULSE 69; RESP 16; TEMP 98.2
[2025-05-15 08:00] VITALS: O2SAT 96
[2025-05-15 11:15] LABS: NUCLEATED RED BLOOD CELLS 0.0 % (0.0-0.19); PLATELET COUNT (AUTO) 154.0 K/uL (130-400); RED BLOOD CELL COUNT(AUTO) 3.82 MIL/uL (4.00-5.50); RED CELL DISTRIBUTION WIDTH 13.9 % (11.0-15.5); WHITE BLOOD COUNT (AUTO) 4.8 K/uL (4.8-10.8)
[2025-05-15 11:23] LABS: CREATININE 0.7 mg/dL (0.5-1.0); GLOMERULAR FILTR. RATE CALC 88.0 mL/min (>90); GLUCOSE,RANDOM 149.0 mg/dL (70-105); SODIUM SERUM 142.0 mmol/L (136-145); UREA NITROGEN, BLOOD 14.0 mg/dL (7-18)
--- NOTE | 2025-05-15 11:27 | NUR ---
DCP:HOME SW spoke with who was at bedside Nir Vaughan [phone]. Pt does not have any DME or home health services. Pt does have a provider that goes to her home 17 hrs a week and she assists with home management and meals. PCP is Dr. Victor Hugo Leary and uses [facility] for any RX needs. At [place] pt will want to go home and family can assist with transportation. Addendum: 05/15/25 at 1129 by DARLENE DELEON SS Amended: Links added.
[2025-05-15 11:28] LABS: ASPARTATE AMINOTRANSFERASE 21.0 U/L (10-37); TOTAL PROTEIN, SERUM 6.3 g/dL (6.0-8.3)
[2025-05-15 12:00] VITALS: BP 138/64; PULSE 65; RESP 15; TEMP 98.2
[2025-05-15] MEDS ORDERED: PE/S52CR RC (15:01)
[2025-05-15] MEDS ORDERED: AMOX1TAB16 PO (15:01)
[2025-05-15] MEDS ORDERED: CILO2.5OS OP (15:01)
--- NOTE | 2025-05-15 15:04 | DS ---
Discharge Summary Hospital Course Summary: The patient admitted to hospital May 13, 2025 with the following history of the present illness: 82-year-old female with past medical history of dementia hypertension, hyperlipidemia who presented to the hospital secondary to confusion. History is mainly obtained from patient's daughter. The patient is unable to participate in conversations. Patient's is also present at bedside. The patient has underlying history of dementia but was noted to have increasing confusion for the past 3-4 days. Per daughter patient was being treated for UTI. Her urine cultures grew Enterococcus and she was currently on ciprofloxacin. Patient was also noted to have bilateral redness on the eye. Per daughter patient has been picking mendez on the outside. She has been less active compared to before. Per she has been eating and she denies any nausea, vomiting, abdominal pain. History is limited since patient is not able to participate in conversation. Has a history of chronic UTI and previously was on suppressive therapy. Labs showed white count of 4.7, hemoglobin was 12.7, platelet count was 164 K, sodium was 137, potassium was 3.8, chloride was 100, bicarb was 33 , creatinine was 0.7, troponin was negative x1 Patient underwent CT head which showed no acute intracranial process. There was severe global atrial fib with periventricular ischemic white matter changes. There was a old infarct involving the left periventricular region with encephalomalacia. This was also present and a previous MRI performed in 2023 HOSPITAL COURSE 05/14 patient is seen and examined at bedside, case discussed with the RN, no acute events overnight, time of my visit patient is awake, she is following commands, however unable to tell me to dictate. present in the room at the time of my visit. Patient noted to have bilateral erythematous conjunctiva. No purulent discharge noted. Results of MRI of the brain no acute intracranial findings, stable chronic left-sided infarct with gliosis involving the centrum semiovale, cueto radiata and basal ganglia, severe generalized cerebral atrophy most pronounced in the left temporal lobe, small-vessel ischemic changes, ex vacuo ventricular dilatation, ethmoid, sphenoid and right maxillary sinusitis. Finding discussed with the . We have requested Neurology consultation, we will follow input and recommendation. Continue with sitter at bedside, fall precautions, start Rocephin 1 g IV daily, antibiotic eyedrops we will be started based on pharmacy formulation. Check rapid strep, influenza as well as SARS a ntigen. Continue to monitor neurological status. TSH of 1.73. B12 of 1818. Folic acid greater than 20. 05/15 patient is seen and examined at bedside, discussed with the RN, no acute events overnight, hemodynamically stable, patient with a history of external hemorrhoids, per the patient had small amount of rectal bleed during this morning with bowel movement. Requesting hemorrhoidal cream. Patient also evaluated by urologist, input noted and appreciated: Acute metabolic encephalopathy Assessment: Ms Barroso's altered mental status appears to be multifactorial. She has a known history of dementia for over a year, with progressive decline in cognitive function and communication. The recent exacerbation of confusion and disorientation may be related to her recent urinary tract infection, for which she was treated with ciprofloxacin. An acute cerebrovascular event has been ruled out by a clean MRI for acute stroke, though there is evidence of previous left-sided strokes (left temporal and periventricular encephalomalacia). The patient's family reports that her current presentation is consistent with her baseline over the past 8-10 months, suggesting this may represent progression of her underlying dementia rather than an acute change. Plan: - Continue follow-up with her neurologist, Dr. Moises Garcia - Arrange earlier follow-up appointment with Dr. Garcia due to recent hospitalization - Monitor for any acute changes in mental status Dementia Assessment: Ms Barroso has a history of dementia for over a year, with significant progression noted. She has become increasingly non-verbal and less interactive, primarily nocturnal, and spends most of her day sleeping after breakfast. The MRI shows evidence of previous left-sided strokes, which may cont ribute to her cognitive decline. Her current presentation is consistent with advanced dementia. Plan: - Continue current management plan - Follow up with neurologist, Dr. Moises Garcia Prediabetes Assessment: Lab work revealed a hemoglobin A1c of 6.3%, indicating prediabetes. Plan: - Monitor blood glucose levels - Consider lifestyle modifications as appropriate given the patient's overall condition Hypertension Assessment: Ms Barroso has a history of hypertension. No acute issues related to hypertension were noted during this encounter. Plan: - Continue current management Dyslipidemia Assessment: Ms Barroso has a history of dyslipidemia. No acute issues related to dyslipidemia were noted during this encounter. Plan: - Continue current management Recent Urinary Tract Infection Assessment: Ms Bugamat recently had a urinary tract infection, which was treated with ciprofloxacin. The current urinalysis is negative, suggesting resolution of the infection. Plan: - No further action required at this time - Monitor for recurrence of symptoms Nipple Threader(s): Neurology Assessment/Plan: Final diagnosis Acute metabolic encephalopathy, POA Dementia Bilateral conjunctivitis differential viral versus bacterial versus allergic Hypertension Hyperlipidemia Dehydration History of chronic UTI Discharge Instructions: The patient to be discharged home today, to follow with her neurologist Dr. Garcia as an outpatient. Return to the hospital if condition changes. at bedside, agreed and understood the information provided. Home Medications: Active Scripts Docusate Sodium (Colace) 100 Mg Capsule, 1 CAP PO BID for 30 Days, #60 CAP 0 Refills Prov:ALAN WHITLEY [employer]PRENTICE 07/31/24 Reported Medications Oxybutynin Chloride (Oxybutynin Chloride) 5 Mg Tablet, 5 MG PO HS, TAB 05/13/25 Amlodipine Besylate (Amlodipine Besylate) 5 Mg Tablet, 1 TAB PO DAILY for 30 Days, #30 TAB 0 Refills 11/03/24 Methenamine Mandelate (Methenamine Mandelate) 1 Gram Tablet, 1 TAB PO DAILY for 30 Days, #60 TAB 0 Refills 11/03/24 Pioglitazone HCl (Pioglitazone HCl) 15 Mg Tablet, 1 TAB PO DAILY for 30 Days, #30 TAB 0 Refills 11/03/24 Ergocalciferol (Vitamin D2) (Vitamin D2) 1,250 Mcg (53074 Unit) Capsule, 1250 MCG PO QWEEK, CAP 11/03/24 Atorvastatin Calcium (Atorvastatin Calcium) 20 Mg Tablet, 1 TAB PO HS for 30 Days, #30 TAB 0 Refills 07/29/24 Paroxetine HCl (Paroxetine HCl) 20 Mg Tablet, 20 MG PO HS, TAB 07/29/24 Donepezil HCl (Donepezil HCl) 10 Mg Tablet, 10 MG PO HS, TAB 07/29/24 Memantine HCl (Memantine HCl) 10 Mg Tablet, 10 MG PO BID, TAB 07/29/24 Time spent arranging discharge: 31-60 minutes ANEL MCBRIDE MD May 15, 2025 15:04
[2025-05-15 16:00] VITALS: BP 130/60; PULSE 66; RESP 16; TEMP 98.3
--- NOTE | 2025-05-15 17:35 | NUR ---
PATIENT DISCHARGE HOME VIA PERSONAL VEHICLE WITH . IV REMOVED INTACT AND TELE MONITOR REMOVED. ALL QUESTIONS AND CONCERNS ANSWERED.
== END 2025-05-15 17:35 | disposition home or self-care (01) ==
LOC: EDH 10:33 → EDHIP 13:15 → UNDOADMOB 13:15 → INTOOBSV 13:15 → EDHIP 17:10 → 4CH 17:10 → 4BH 21:17 → 4CH 05-15 09:30 → 4BH 05-15 09:30 → EDHIP 05-15 09:30
PROVIDERS: ADMIT Internal Medicine; ATTEND Internal Medicine
DX: G93.41 Metabolic encephalopathy (principal); R41.82 Altered mental status, unspecified; F03.90 Unspecified dementia, unspecified severity, without behavioral disturbance, psychotic disturbance, mood disturbance, and anxiety; I10 Essential (primary) hypertension; E78.5 Hyperlipidemia, unspecified; E86.0 Dehydration; N39.0 Urinary tract infection, site not specified; R79.1 Abnormal coagulation profile; Z98.51 Tubal ligation status; Z79.899 Other long term (current) drug therapy; Z98.890 Other specified postprocedural states; Z20.822 Contact with and (suspected) exposure to COVID-19
CPT/HCPCS: 96361 ×3; 96375; 99285; 83036; 84443; 82550 ×3; 83721; 84484; 80048 ×2; 85025 ×2; 85610; 85730; 87086; 87804 ×2; 82948; 81003; 36415 ×3; 87635; 71045; 70450; 70551; 93005; 84145; 96376 ×2; 96365; 83735 ×2; 87880; 82607; 82746; 96366; 80053; 85027; J1308 ×4; J7030; J0696 ×2; G0378 ×8